=== PATIENT | female | born 2000 | race Caucasian/White ===

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

== ENCOUNTER 2023-07-10 20:04 | Inpatient (IN) ==
--- NOTE | 2023-07-10 20:15 | ED Triage Note ---
Date of Service July 10, 2023 Provider in Triage Author: Melisa Mcmahon History of Present Illness This patient was briefly evaluated while in triage. An abbreviated physical exam was performed. This patient is a 22-year-old Female who presents to the ED for evaluation of "I'm wheezing really bad. My back hurts. My head hurts. And I can't quit wheezing. It's really bad." States symptoms started 3 days ago. Having difficulty catching her breath. Denies any chest pain. Is having back pain. No history of allergies or asthma. States her chest was really red earlier today. Has been outside a lot. Physical Exam VITALS: Vitals are noted on the nurse's note and reviewed by myself. GENERAL: This is a 22 year old female, in no acute distress, nondiaphoretic, well-developed well-nourished. SKIN: No obvious rashes, edema, erythema HEAD: Normocephalic atraumatic. EYES: Conjunctivae without injection, sclerae without icterus. NECK: No JVD. LUNGS: Diffuse expiratory wheezing, decreased inspiratory breath sounds. +Retractions. MUSCULOSKELETAL: Normal gait. NEURO: Patient was alert and oriented to person place and time. No focal neurological deficits. Initial orders for labs and / or imaging were placed and patient was placed in the waiting area until a bed is available. Please see further documentation for the full ED course.
[2023-07-10] MEDS: methylPREDNISolone 125 MG/2 ML VIAL IV STA (20:25)
[2023-07-10] MEDS: ALBUT/IPRATROP 3MG/0.5MG NEB 3 ML VIAL INH STA (20:25)
[2023-07-10] MEDS: SODIUM CHLORIDE 0.9% 1,000 ML IV SCH (20:35)
[2023-07-10 20:59] LABS: Basophils # (auto) 0.07 K/uL (0.00-0.20); Basophils % (auto) 0.6 %; Eosinophils # (auto) 1.32 K/uL (0.00-0.50); Eosinophils % (auto) 10.9 %; Hematocrit (blood only) 37.6 % (37.0-47.0); Hemoglobin 13.3 g/dl (12.0-16.0); Immature Granulocytes # (auto) 0.03 K/uL (0.01-0.20); Immature Granulocytes % (auto) 0.2 %; Lymphocytes # (auto) 2.46 K/uL (1.20-3.40); Lymphocytes % (auto) 20.3 %; Mean Corpuscular Hemoglobin 28.7 pg (25.0-34.0); Mean Corpuscular Hgb Conc 35.4 g/dL (32.0-36.0); Mean Corpuscular Volume 81.2 fL (80.0-100.0); Mean Platelet Volume 11.1 fL (9.4-12.4); Monocytes # (auto) 0.76 K/uL (0.11-0.59); Monocytes % (auto) 6.3 %; Neutrophils # (auto) 7.46 K/uL (1.40-6.50); Neutrophils % (auto) 61.7 %; Platelet Count 319 K/uL (130-400); RDW Coefficient of Variation 12.2 % (11.5-14.5); RDW Standard Deviation 35.5 fL (36.4-46.3); Red Blood Count 4.63 M/uL (4.20-5.40)
--- NOTE | 2023-07-10 21:05 | Emergency Department Note ---
Impression & Plan Obstructive airway disease, Diffuse wheezing, Leukocytosis, Shortness of breath ED Provider Note HISTORY OF PRESENT ILLNESS: Patient is a 22-year-old female presenting with shortness of breath. Patient reports that she has been having significantly progressive shortness of breath over the last 3 days. Reports that she is also having right-sided chest pain. Reports that she feels like she cannot catch her breath. Denies any DVT or PE history. Denies any OCP use or recent surgeries. Denies any fevers. Reports that the right upper part of her chest hurts when she coughs. She states that she feels very winded both at rest and with any sort of exertion. She reports a cough it has been nonproductive. Denies any recent sick contact exposures. Denies any recent travel. ROS: as above PHYSICAL EXAM: Constitutional: Patient appears in no acute distress. HENT: Head: Normocephalic and atraumatic. Eyes: EOMI, PERRL Mouth/Throat: Mucous membranes moist. Neck: Trachea midline. Neck supple. Cardiovascular: Tachycardic with regular rhythm. No murmurs, rubs or gallops. Intact distal pulses. Pulmonary/Chest: No respiratory distress. Patient has significant audible wheezes without a stethoscope. She does have expiratory wheezes on assessment of her chest. She is tachypneic Abdominal: Abdomen soft, no tenderness, rebound or guarding. Musculoskeletal: No edema, tenderness or deformity noted. Skin: Warm and dry. No rash, erythema, pallor or cyanosis Psychiatric: Appropriate mood and affect for situation. Neurological: Alert and keenly responsive. CN II-XII grossly intact, moving all extremities equally and fully. MDM: - Vitals signs showed tachycardia and tachypnea. - History obtained via patient. History as above. - Chronic conditions affecting care: None - Differential diagnoses include, but are not limited to: Congestive heart failure; acute coronary syndrome; COPD/asthma exacerbation; pulmonary edema; pulmonary embolism; pneumonia; pneumothorax; viral syndrome - Order placed for continuous cardiac monitoring. At this time, monitor showed rate of 101 bpm with normal sinus rhythm, per my interpretation. - External medical records reviewed. - EKG interpreted by myself showed normal sinus rhythm. Rate 86 bpm. QT 348. No acute ischemic changes. Noted to have PVCs. - Laboratory workup interpreted by myself showed leukocytosis (WBC 12.10); stable electrolytes; normal troponin; normal magnesium; negative hCG - CXR negative for pneumonia, per my interpretation - CT PE negative for PE. - Patient was given duoneb treatment, 1L NS and 125 mg IV solumedrol on initial assessment. On my assessment, the patient is still significantly wheezy and tachypneic. She is given 1 g of IV magnesium. On reassessment, her tachypnea has improved but she is still very wheezy. She was given an hour-long DuoNeb treatment. On reassessment at 2342, the patient is still tachypneic and working hard to breathe. She is holding the DuoNeb treatments to her face and reports it does not feel like it is working. She does have significant expiratory wheezes still. I decided to order 0.3 mg of IM epinephrine to see if this can help with further treatment of her obstructive airway disease. Discussed results with the patient. She is agreeable to admission. - Discussion was had with pillowcase sewer about patient's case and need for admission - Hospitalist consulted for admission - [facility]. I have personally spent 46 minutes of critical care time in the direct management of this patient. This includes bedside care, interpretation of diagnostic studies, and testing, discussion with consultants, patient, and family members, and other required patient management activities. This 46 minutes is in excess of all separately billable procedures. ASSESSMENT AND PLAN: Diagnosis: obstructive airway disease; leukocytosis; diffuse wheezing; shortness of breath Plan: admit Past Med/Surg History Medical History No pertinent family history Rib pain on left side Left facial swelling Dental abscess Surgical History No pertinent past surgical history Family History Other No pertinent family history in first degree relatives Social History Smoking Status: Current every day smoker Tobacco Type: E-cigarettes / Vaping Hx Alcohol Use: No Hx Substance Use: No Preferred Language: Kinyarwanda marital status: Single Current Living Situation: Family current occupational status: student Feels Safe at Home: Yes Allergies Allergies Allergy/AdvReac Type Severity Reaction Status Date / Time No Known Allergies Allergy Verified 03/10/21 23:10 Home Meds Home Medications Medication Instructions Recorded Confirmed albuterol sulfate 90 mcg/actuation 1 puff inhalation Q6H PRN 10/25/18 03/10/21 aerosol inhaler (Ventolin HFA) Shortness Of Breath Or Wheezing escitalopram oxalate 10 mg tablet 10 mg PO DAILY 12/07/20 03/10/21 Previous Rx's Medication Instructions Recorded albuterol sulfate 90 mcg/actuation 2 inha inhalation Q6H PRN 06/17/23 aerosol inhaler shortness of breath or wheezing #1 inhaler benzonatate 200 mg capsule 200 mg PO TID PRN cough #30 caps 06/17/23 Results & Data (ED) Vital Signs Vital Signs - 24 hr 07/10/23 20:13 07/10/23 20:34 07/10/23 20:48 Temperature 36.9 C Temperature Source Temporal Artery Scan Pulse Rate 96 H 120 H Pulse Rate [Left Apical] 98 H Pulse Rate from SpO2 Sensor Respiratory Rate 22 33 H Respiratory Effort / Characteristics Labored Short of Breath Blood Pressure 126/76 Blood Pressure [Left Arm] 133/95 Blood Pressure Mean 92 Blood Pressure Mean [Left Arm] 107 Blood Pressure Position [Left Arm] Sitting Pulse Oximetry 96 91 Oxygen Delivery Method Room Air Room Air Sepsis Recent Fever Within 48 Hours No Sepsis New/Unexplained Change in Mental Status No Sepsis Action Taken by Nursing No Action Required 07/10/23 20:50 07/10/23 21:00 07/10/23 21:31 Temperature Temperature Source Pulse Rate 96 H 107 H Pulse Rate [Left Apical] Pulse Rate from SpO2 Sensor 95 H 89 Respiratory Rate 18 43 H Respiratory Effort / Characteristics Blood Pressure 122/64 103/84 Blood Pressure [Left Arm] Blood Pressure Mean 83 90 Blood Pressure Mean [Left Arm] Blood Pressure Position [Left Arm] Pulse Oximetry 93 97 93 Oxygen Delivery Method Room Air Sepsis Recent Fever Within 48 Hours Sepsis New/Unexplained Change in Mental Status Sepsis Action Taken by Nursing 07/10/23 22:30 07/10/23 22:41 07/10/23 22:42 Temperature Temperature Source Pulse Rate 84 Pulse Rate [Left Apical] Pulse Rate from SpO2 Sensor 85 103 H Respiratory Rate 19 Respiratory Effort / Characteristics Blood Pressure 132/90 132/90 Blood Pressure [Left Arm] Blood Pressure Mean 104 104 Blood Pressure Mean [Left Arm] Blood Pressure Position [Left Arm] Pulse Oximetry 95 92 95 Oxygen Delivery Method Room Air Room Air Sepsis Recent Fever Within 48 Hours Sepsis New/Unexplained Change in Mental Status Sepsis Action Taken by Nursing 07/10/23 23:00 07/10/23 23:16 07/10/23 23:54 Temperature Temperature Source Pulse Rate 105 H 134 H Pulse Rate [Left Apical] 80 Pulse Rate from SpO2 Sensor 101 H 138 H Respiratory Rate 23 16 20 Respiratory Effort / Characteristics Non-Labored Spontaneous Blood Pressure 99/56 L 137/87 Blood Pressure [Left Arm] Blood Pressure Mean 70 103 Blood Pressure Mean [Left Arm] Blood Pressure Position [Left Arm] Pulse Oximetry 92 95 94 Oxygen Delivery Method Room Air Sepsis Recent Fever Within 48 Hours Sepsis New/Unexplained Change in Mental Status Sepsis Action Taken by Nursing 07/11/23 00:00 Temperature Temperature Source Pulse Rate 86 Pulse Rate [Left Apical] Pulse Rate from SpO2 Sensor 80 Respiratory Rate 23 Respiratory Effort / Characteristics Blood Pressure 99/51 L Blood Pressure [Left Arm] Blood Pressure Mean 67 Blood Pressure Mean [Left Arm] Blood Pressure Position [Left Arm] Pulse Oximetry 92 Oxygen Delivery Method Room Air Sepsis Recent Fever Within 48 Hours Sepsis New/Unexplained Change in Mental Status Sepsis Action Taken by Nursing Laboratory Data 07/10/23 20:20 07/10/23 20:20 Lab Results 07/10/23 07/10/23 Range/Units 20:20 23:08 WBC 12.10 H (4.8-10.8) K/ul RBC 4.63 (4.20-5.40) M/uL Hgb 13.3 (12.0-16.0) g/dl Hct 37.6 (37.0-47.0) % MCV 81.2 (80.0-100.0) fL MCH 28.7 (25.0-34.0) pg MCHC 35.4 (32.0-36.0) g/dL RDW Std Deviation 35.5 L (36.4-46.3) fL RDW Coeff of [place] 12.2 (11.5-14.5) % Plt Count 319 (130-400) K/uL MPV 11.1 (9.4-12.4) fL Immature Gran % (Auto) 0.2 % Neut % (Auto) 61.7 % Lymph % (Auto) 20.3 % [place] % (Auto) 6.3 % Eos % (Auto) 10.9 % Baso % (Auto) 0.6 % Neut # (Auto) 7.46 H (1.40-6.50) K/uL Lymph # (Auto) 2.46 (1.20-3.40) K/uL [place] # (Auto) 0.76 H (0.11-0.59) K/uL Eos # (Auto) 1.32 H (0.00-0.50) K/uL Baso # (Auto) 0.07 (0.00-0.20) K/uL Immature Gran # (Auto) 0.03 (0.01-0.20) K/uL PT 11.3 (9.0-12.0) Seconds INR 1.0 (0.9-1.1) APTT 32 H (21-31) Seconds PTT Ratio 1.1 D-Dimer 230 (0-500) ug/L FEU Sodium 139 (136-145) mmol/L Potassium 3.5 (3.5-5.1) mmol/L Chloride 107 (98-107) mmol/L Carbon Dioxide 23 (21-32) mmol/L Anion Gap 9 (3-11) BUN 7 (6-23) mg/dl Creatinine 0.62 (0.6-1.2) mg/dl Est Cr Clr Drug Dosing 117.7 ml/min Est GFR ( Amer) 148.3 ml/min Est GFR (Non-Af Amer) 128.0 ml/min BUN/Creatinine Ratio 11.3 (10-20) Glucose 99 (70-99(Fasting)) mg/dl Calcium 9.6 (8.6-10.3) mg/dl Magnesium 1.9 (1.7-2.4) mg/dl Total Bilirubin 0.6 (0.2-1.0) mg/dl AST 16 (13-39) U/L ALT 10 (7-52) U/L Alkaline Phosphatase 86 (34-104) U/L Troponin I High Sens 2.3 (0-14) pg/ml Total Protein 7.8 (6.0-8.3) gm/dl Albumin 4.6 (3.4-5.0) gm/dl Globulin 3.2 (2.5-4.0) gm/dl Albumin/Globulin Ratio 1.4 (0.9-2) HCG, Qual Negative (Negative) Urine Color Yellow Urine Appearance Clear (Clear) Urine pH 6.0 (4.5-7.5) Ur Specific [place] > 1.045 H (1.000-1.030) Urine Protein Negative (Negative) Urine Glucose (UA) Negative (Negative) Urine Ketones Negative (Negative) Urine Blood Negative (Negative) Urine Nitrite Negative (Negative) Urine Bilirubin Negative (Negative) Urine Urobilinogen Negative (Negative) Ur Leukocyte Esterase Negative (Negative) Adenovirus (PCR) Not Detected (NotDetected) B. pertussis DNA (PCR) Not Detected (NotDetected) B.parapertussis DNA PCR Not Detected (NotDetected) C. pneumoniae DNA (PCR) Not Detected (NotDetected) Coronavirus OC43 (PCR) Not Detected (NotDetected) Coronavirus HKU1 (PCR) Not Detected (NotDetected) Coronavirus 229E (PCR) Not Detected (NotDetected) SARS-CoV-2 (PCR) Not Detected (NotDetected) Coronavirus NL63 (PCR) Not Detected (NotDetected) Human Metapneumovir PCR Not Detected (NotDetected) Influenza Type A (PCR) Not Detected (NotDetected) Influenza Type B (PCR) Not Detected (NotDetected) M. pneumoniae (PCR) Not Detected (NotDetected) Parainfluenza 1 (PCR) Not Detected (NotDetected) Parainfluenza 2 (PCR) Not Detected (NotDetected) Parainfluenza 3 (PCR) Not Detected (NotDetected) Parainfluenza 4 (PCR) Not Detected (NotDetected) RSV (PCR) Not Detected (NotDetected) Entero/Rhino (PCR) Not Detected (NotDetected) Administered Medications Discontinued Medications Albuterol (Albut/Ipratrop 3mg/0.5mg Neb 3 Ml Vial) 3 ml INH NOW STA Stop: 07/10/23 20:16 Last Admin: 07/10/23 20:25 Dose: 3 ml Documented By: [facility] Albuterol (Albut/Ipratrop 3mg/0.5mg Neb 3 Ml Vial) 12 ml NEB ONE ONE; Protocol Stop: 07/10/23 22:56 Last Admin: 07/10/23 23:16 Dose: 12 ml Documented By: BEN Epinephrine HCl (Epinephrine Inj 1 Mg/Ml Amp) 0.3 mg IM NOW STA Stop: 07/10/23 23:42 Last Admin: 07/10/23 23:53 Dose: 0.3 mg Documented By: DANIELA Sodium Chloride (Nss) 1,000 mls @ 999 mls/hr IV .Q1H1M VISHNU Stop: 07/10/23 21:15 Last Infusion: 07/10/23 21:36 Dose: Infused Documented By: Admin: 07/10/23 20:35 Dose: 999 mls/hr Documented By: NIYA Magnesium Sulfate/Dextrose (Magnesium Sulfate / D5w) 1 gm in 100 mls @ 100 mls/hr IV NOW STA Stop: 07/10/23 21:59 Last Infusion: 07/10/23 22:08 Dose: Infused Documented By: Admin: 07/10/23 21:08 Dose: 100 mls/hr [place]ed [place] [facility] [place] (Optiray 320 125ml) 87 ml IV ONCE ONE Stop: 07/10/23 22:03 Last Admin: 07/10/23 22:02 Dose: 87 ml Documented By: NICOLASA Methylprednisolone (Methylprednisolone 125 Mg/2 Ml Vial) 125 mg IV NOW STA Stop: 07/10/23 20:16 Last Admin: 07/10/23 20:25 Dose: 125 mg Documented By: HERNANDEZ Imaging Data Radiologist's Impression: Chest CTA 07/10/23 21:08 Exam(s): CTA CHEST IV Amt: 87 ml opti 320 EXAM: CT Angiography Chest With Intravenous Contrast CLINICAL HISTORY: Reason for exam: PE. TECHNIQUE: Axial computed tomographic angiography images of the chest with intravenous contrast. Automated exposure control was utilized for the study. A dose lowering technique was utilized adhering to the principles of ALARA. MIP reconstructed images were created and reviewed. COMPARISON: No relevant prior studies available. FINDINGS: LUNGS: No focal consolidation, pleural effusion, or pneumothorax. HEART: Within normal limits. VASCULATURE: No acute pulmonary embolism. THYROID: Within normal limits. MEDIASTINUM + LYMPH NODES: There are no pathologically enlarged mediastinal, hilar, or axillary lymph nodes. SUPERIOR ABDOMEN: The included portions of the superior abdomen are within normal limits. MUSCULOSKELETAL: Within normal limits. IMPRESSION: No acute pulmonary embolism. Electronically signed by: Wali Whitehead MD 07/10/23 23:05 PM Discharge Plan Visit Data Chief Complaint: Shortness of Breath/Dyspnea Stated Complaint: SOB ED Provider: Melisa Mcmahon Discharge Problem: Obstructive airway disease, Diffuse wheezing, Leukocytosis, Shortness of breath Forms Stand Alone Forms: [employer] Prescriptions Prescriptions: No Action albuterol sulfate [Ventolin HFA] 90 mcg/actuation HFA aerosol inhaler 1 puff inhalation Q6H PRN (Reason: Shortness Of Breath Or Wheezing) escitalopram oxalate 10 mg tablet 10 mg PO DAILY benzonatate 200 mg capsule 200 mg PO TID PRN (Reason: cough) Qty: 30 0RF albuterol sulfate 90 mcg/actuation HFA aerosol inhaler 2 inha INH Q6H PRN (Reason: shortness of breath or wheezing) Qty: 1 0RF Referrals Referrals: PCP,NO [Physician] -
[2023-07-10 21:06] LABS: Albumin Globulin Ratio 1.4 (0.9-2); Albumin Level 4.6 gm/dl (3.4-5.0); BUN Creatinine Ratio 11.3 (10-20); Bilirubin,Total 0.6 mg/dl (0.2-1.0); Calcium 9.6 mg/dl (8.6-10.3); Creatinine Clr Calc Pharmacy 117.7 ml/min; Est GFR (African American) 148.3 ml/min; Globulin 3.2 gm/dl (2.5-4.0); Magnesium 1.9 mg/dl (1.7-2.4); Potassium 3.5 mmol/L (3.5-5.1); Pregnancy Test, Serum Negative (Negative); Total Protein 7.8 gm/dl (6.0-8.3)
[2023-07-10] MEDS: MAGNESIUM SULFATE / D5W 1 GM/100 ML BAG IV STA (21:08)
[2023-07-10 21:13] LABS: Troponin I High Sensitivity 2.3 pg/ml (0-14)
[2023-07-10 21:34] LABS: Adenovirus PCR Not Detected (NotDetected); Bordetella parapertussis PCR Not Detected (NotDetected); Bordetella pertussis PCR Not Detected (NotDetected); Chlamydia pneumoniae PCR Not Detected (NotDetected); Coronavirus 229E PCR Not Detected (NotDetected); Coronavirus CoV-2 (COVID19)PCR Not Detected (NotDetected); Coronavirus HKU1 PCR Not Detected (NotDetected); Coronavirus NL63 PCR Not Detected (NotDetected); Coronavirus OC43PCR Not Detected (NotDetected); Human Metapneumovirus PCR Not Detected (NotDetected); Influenza A PCR Not Detected (NotDetected); Influenza B PCR Not Detected (NotDetected); Mycoplasma pneumoniae PCR Not Detected (NotDetected); Parainfluenza Virus 1 PCR Not Detected (NotDetected); Parainfluenza Virus 2 PCR Not Detected (NotDetected); Parainfluenza Virus 3 PCR Not Detected (NotDetected); Parainfluenza Virus 4 PCR Not Detected (NotDetected); Respiratory Syncytial VirusPCR Not Detected (NotDetected); Rhinovirus/Enterovirus PCR Not Detected (NotDetected)
[2023-07-10 21:47] LABS: D Dimer 230 ug/L FEU (0-500); Partial Thromboplastin Ratio 1.1; Partial Thromboplastin Time 32 Seconds (21-31); Prothrombin Time 11.3 Seconds (9.0-12.0)
[2023-07-10] MEDS: OPTIRAY 320 125ml IV ONE (22:02)
--- NOTE | 2023-07-10 23:05 | CT Scan Report ---
Exam(s): CTA CHEST IV Amt: 87 ml opti 320 EXAM: CT Angiography Chest With Intravenous Contrast CLINICAL HISTORY: Reason for exam: PE. TECHNIQUE: Axial computed tomographic angiography images of the chest with intravenous contrast. Automated exposure control was utilized for the study. A dose lowering technique was utilized adhering to the principles of ALARA. MIP reconstructed images were created and reviewed. COMPARISON: No relevant prior studies available. FINDINGS: LUNGS: No focal consolidation, pleural effusion, or pneumothorax. HEART: Within normal limits. VASCULATURE: No acute pulmonary embolism. THYROID: Within normal limits. MEDIASTINUM + LYMPH NODES: There are no pathologically enlarged mediastinal, hilar, or axillary lymph nodes. SUPERIOR ABDOMEN: The included portions of the superior abdomen are within normal limits. MUSCULOSKELETAL: Within normal limits. IMPRESSION: No acute pulmonary embolism. Electronically signed by: Wali Whitehead MD 07/10/23 23:05 PM
[2023-07-10] MEDS: ALBUT/IPRATROP 3MG/0.5MG NEB 3 ML VIAL NEB ONE (23:16)
[2023-07-10 23:38] LABS: Appearance Urine Clear (Clear); Bilirubin Urine Negative (Negative); Blood Urine Negative (Negative); Color Urine Yellow; Glucose Urine UA Negative (Negative); Ketones Urine Negative (Negative); Leukocyte Esterase Urine Negative (Negative); Nitrite Urine Negative (Negative); Protein Urine Negative (Negative); Specific Gravity Urine > 1.045 (1.000-1.030); Urobilinogen Urine Negative (Negative)
[2023-07-10] MEDS: EPINEPHrine INJ 1 MG/ML AMP IM STA (23:53)
--- NOTE | 2023-07-11 01:47 | History & Physical Report ---
Date of Service July 11, 2023 Assessment & Plan (1) Shortness of breath: Plan: 22-year-old female with past med history significant for depression and anxiety presents with shortness of breath and cough going on for last 3 days. States it is getting progressively worse. Having dry cough. Chest is hurting and back is hurting because of cough. Denies any fevers. No headache. No runny nose or sore throat. No nausea. No abdominal pain. Normal bowel and bladder movements. Patient seems to be very short of breath and not improved with a 1 hour-long nebs and magnesium and she was given dose of epinephrine in the ER. Currently sitting on the bed comfortably, slightly shaky. But able to talk in full sentences. Patient states she used nebs many many years ago. And recently she was using inhaler but was not helping. Patient states she has no diagnosis of asthma. Shortness of breath Possibly asthma exacerbation. Mild bilateral wheezing on exam Continue with IV Solu-Medrol 40 mg 3 times daily, nebs [id number] and as needed and p.o. doxycycline Consult pulmonary in a.m. for further recommendations Depression and anxiety Continue home medications Chest pain from coughing will f/u serial ce. DVT prophylaxis Lovenox Disposition Telemetry Full code. History of Present Illness Chief Complaint: Shortness of breath Primary Care Provider: John Marion Jr 22-year-old female with past med history significant for depression and anxiety presents with shortness of breath and cough going on for last 3 days. States it is getting progressively worse. Having dry cough. Chest is hurting and back is hurting because of cough. Denies any fevers. No headache. No runny nose or sore throat. No nausea. No abdominal pain. Normal bowel and bladder movements. Patient seems to be very short of breath and not improved with a 1 hour-long nebs and magnesium and she was given dose of epinephrine in the ER. Currently sitting on the bed comfortably, slightly shaky. But able to talk in full sentences. Patient states she used nebs many many years ago. And recently she was using inhaler but was not helping. Patient states she has no diagnosis of asthma. Past medical history. As mentioned above Past surgical history none as per patient Social history. Denies vaping daily. Alcohol occasional. Family history. Father had diabetes and neuropathy. States mother does not go to doctors. Allergies Allergy/AdvReac Type Severity Reaction Status Date / Time No Known Allergies Allergy Verified 07/11/23 01:45 Home Medications Medication Instructions Recorded Confirmed Type albuterol sulfate 90 mcg/actuation 1 puff inhalation Q6H PRN 10/25/18 07/11/23 History aerosol inhaler (Ventolin HFA) Shortness Of Breath Or Wheezing albuterol sulfate 90 mcg/actuation 2 inha inhalation Q6H PRN 06/17/23 07/11/23 Rx aerosol inhaler shortness of breath or wheezing #1 inhaler buspirone 5 mg tablet 5 mg PO BID 07/11/23 07/11/23 History doxepin 50 mg capsule 50 mg PO HS 07/11/23 07/11/23 History guaifenesin 100 mg/5 mL oral liquid 0 mg PO Q4H PRN Cough 07/11/23 07/11/23 History Past Med/Surg History Medical History No pertinent family history Rib pain on left side Left facial swelling Dental abscess Surgical History No pertinent past surgical history Family History Other No pertinent family history in first degree relatives Social History Smoking Status: Current every day smoker Tobacco Type: E-cigarettes / Vaping Hx Alcohol Use: No Hx Substance Use: No Preferred Language: [place] marital status: Single Current Living Situation: Family current occupational status: student Feels Safe at Home: Yes Review of Systems Review of Systems: All systems reviewed & are unremarkable except as noted in HPI & below Physical Exam Physical Exam: General- Not in acute distress Head- atraumatic Eyes- PERRL. ENT- oropharynx clear Neck- supple, no JVD. Lungs- clear to auscultation mild b/l wheezing, no crackles. Heart- regular rhythm; no murmur, no gallop. Abdomen- normal bowel sounds, soft, nontender, no distension. Extremities- no pretibial edema, no erythema seen Neuro- alert, oriented PERRL no facial palsy; no dysarthria; moves extremities. Results & Data Results & Data Vital Signs (Past 12 Hours) Vital Signs Temp Pulse Pulse Resp BP BP Pulse Ox 07/11/23 00:00 86 23 99/51 L 92 07/10/23 23:54 134 H 20 137/87 94 07/10/23 23:16 80 16 95 07/10/23 23:00 105 H 23 99/56 L 92 07/10/23 22:42 95 07/10/23 22:41 132/90 92 07/10/23 22:30 84 19 132/90 95 07/10/23 21:31 107 H 43 H 103/84 93 07/10/23 21:00 96 H 18 122/64 97 07/10/23 20:50 93 07/10/23 20:48 120 H 07/10/23 20:34 98 H 33 H 133/95 91 07/10/23 20:13 36.9 C 96 H 22 126/76 96 O2 Del Method 07/11/23 00:00 Room Air 07/10/23 23:54 07/10/23 23:16 Room Air 07/10/23 23:00 07/10/23 22:42 Room Air 07/10/23 22:41 07/10/23 22:30 Room Air 07/10/23 21:31 07/10/23 21:00 07/10/23 20:50 Room Air 07/10/23 20:48 07/10/23 20:34 Room Air 07/10/23 20:13 Room Air Diagnostic Findings Laboratory Results WBC 12.10 K/ul (4.8-10.8) H 07/10/23 20:20 RBC 4.63 M/uL (4.20-5.40) 07/10/23 20:20 Hgb 13.3 g/dl (12.0-16.0) 07/10/23 20:20 Hct 37.6 % (37.0-47.0) 07/10/23 20:20 MCV 81.2 fL (80.0-100.0) 07/10/23 20:20 MCH 28.7 pg (25.0-34.0) 07/10/23 20:20 MCHC 35.4 g/dL (32.0-36.0) 07/10/23 20:20 RDW Std Deviation 35.5 fL (36.4-46.3) L 07/10/23 20:20 RDW Coeff of Dedra 12.2 % (11.5-14.5) 07/10/23 20:20 Plt Count 319 K/uL (130-400) 07/10/23 20:20 MPV 11.1 fL (9.4-12.4) 07/10/23 20:20 Immature Gran % (Auto) 0.2 % 07/10/23 20:20 Neut % (Auto) 61.7 % 07/10/23 20:20 Lymph % (Auto) 20.3 % 07/10/23 20:20 [place] % (Auto) 6.3 % 07/10/23 20:20 Eos % (Auto) 10.9 % 07/10/23 20:20 Baso % (Auto) 0.6 % 07/10/23 20:20 Neut # (Auto) 7.46 K/uL (1.40-6.50) H 07/10/23 20:20 Lymph # (Auto) 2.46 K/uL (1.20-3.40) 07/10/23 20:20 [place] # (Auto) 0.76 K/uL (0.11-0.59) H 07/10/23 20:20 Eos # (Auto) 1.32 K/uL (0.00-0.50) H 07/10/23 20:20 Baso # (Auto) 0.07 K/uL (0.00-0.20) 07/10/23 20:20 Immature Gran # (Auto) 0.03 K/uL (0.01-0.20) 07/10/23 20:20 PT 11.3 Seconds (9.0-12.0) 07/10/23 20:20 INR 1.0 (0.9-1.1) 07/10/23 20:20 APTT 32 Seconds (21-31) H 07/10/23 20:20 PTT Ratio 1.1 07/10/23 20:20 D-Dimer 230 ug/L FEU (0-500) 07/10/23 20:20 Sodium 139 mmol/L (136-145) 07/10/23 20:20 Potassium 3.5 mmol/L (3.5-5.1) 07/10/23 20:20 Chloride 107 mmol/L (98-107) 07/10/23 20:20 Carbon Dioxide 23 mmol/L (21-32) 07/10/23 20:20 Anion Gap 9 (3-11) 07/10/23 20:20 BUN 7 mg/dl (6-23) 07/10/23 20:20 Creatinine 0.62 mg/dl (0.6-1.2) 07/10/23 20:20 Est Cr Clr Drug Dosing 117.7 ml/min 07/10/23 20:20 Est GFR ( Amer) 148.3 ml/min 07/10/23 20:20 Est GFR (Non-Af Amer) 128.0 ml/min 07/10/23 20:20 BUN/Creatinine Ratio 11.3 (10-20) 07/10/23 20:20 Glucose 99 mg/dl (70-99(Fasting)) 07/10/23 20:20 Calcium 9.6 mg/dl (8.6-10.3) 07/10/23 20:20 Magnesium 1.9 mg/dl (1.7-2.4) 07/10/23 20:20 Total Bilirubin 0.6 mg/dl (0.2-1.0) 07/10/23 20:20 AST 16 U/L (13-39) 07/10/23 20:20 ALT 10 U/L (7-52) 07/10/23 20:20 Alkaline Phosphatase 86 U/L (34-104) 07/10/23 20:20 Troponin I High Sens 2.3 pg/ml (0-14) 07/10/23 20:20 Total Protein 7.8 gm/dl (6.0-8.3) 07/10/23 20:20 Albumin 4.6 gm/dl (3.4-5.0) 07/10/23 20:20 Globulin 3.2 gm/dl (2.5-4.0) 07/10/23 20:20 Albumin/Globulin Ratio 1.4 (0.9-2) 07/10/23 20:20 HCG, Qual Negative (Negative) 07/10/23 20:20 Urine Color Yellow 07/10/23 23:08 Urine Appearance Clear (Clear) 07/10/23 23:08 Urine pH 6.0 (4.5-7.5) 07/10/23 23:08 Ur Specific [place] > 1.045 (1.000-1.030) H 07/10/23 23:08 Urine Protein Negative (Negative) 07/10/23 23:08 Urine Glucose (UA) Negative (Negative) 07/10/23 23:08 Urine Ketones Negative (Negative) 07/10/23 23:08 Urine Blood Negative (Negative) 07/10/23 23:08 Urine Nitrite Negative (Negative) 07/10/23 23:08 Urine Bilirubin Negative (Negative) 07/10/23 23:08 Urine Urobilinogen Negative (Negative) 07/10/23 23:08 Ur Leukocyte Esterase Negative (Negative) 07/10/23 23:08 Adenovirus (PCR) Not Detected (NotDetected) 07/10/23 20:20 B. pertussis DNA (PCR) Not Detected (NotDetected) 07/10/23 20:20 B.parapertussis DNA PCR Not Detected (NotDetected) 07/10/23 20:20 C. pneumoniae DNA (PCR) Not Detected (NotDetected) 07/10/23 20:20 Coronavirus OC43 (PCR) Not Detected (NotDetected) 07/10/23 20:20 Coronavirus HKU1 (PCR) Not Detected (NotDetected) 07/10/23 20:20 Coronavirus 229E (PCR) Not Detected (NotDetected) 07/10/23 20:20 SARS-CoV-2 (PCR) Not Detected (NotDetected) 07/10/23 20:20 Coronavirus NL63 (PCR) Not Detected (NotDetected) 07/10/23 20:20 Human Metapneumovir PCR Not Detected (NotDetected) 07/10/23 20:20 Influenza Type A (PCR) Not Detected (NotDetected) 07/10/23 20:20 Influenza Type B (PCR) Not Detected (NotDetected) 07/10/23 20:20 M. pneumoniae (PCR) Not Detected (NotDetected) 07/10/23 20:20 Parainfluenza 1 (PCR) Not Detected (NotDetected) 07/10/23 20:20 Parainfluenza 2 (PCR) Not Detected (NotDetected) 07/10/23 20:20 Parainfluenza 3 (PCR) Not Detected (NotDetected) 07/10/23 20:20 Parainfluenza 4 (PCR) Not Detected (NotDetected) 07/10/23 20:20 RSV (PCR) Not Detected (NotDetected) 07/10/23 20:20 Entero/Rhino (PCR) Not Detected (NotDetected) 07/10/23 20:20 Impressions Chest CTA 07/10/23 21:08 Exam(s): CTA CHEST IV Amt: 87 ml opti 320 EXAM: CT Angiography Chest With Intravenous Contrast CLINICAL HISTORY: Reason for exam: PE. TECHNIQUE: Axial computed tomographic angiography images of the chest with intravenous contrast. Automated exposure control was utilized for the study. A dose lowering technique was utilized adhering to the principles of ALARA. MIP reconstructed images were created and reviewed. COMPARISON: No relevant prior studies available. FINDINGS: LUNGS: No focal consolidation, pleural effusion, or pneumothorax. HEART: Within normal limits. VASCULATURE: No acute pulmonary embolism. THYROID: Within normal limits. MEDIASTINUM + LYMPH NODES: There are no pathologically enlarged mediastinal, hilar, or axillary lymph nodes. SUPERIOR ABDOMEN: The included portions of the superior abdomen are within normal limits. MUSCULOSKELETAL: Within normal limits. IMPRESSION: No acute pulmonary embolism. Electronically signed by: Wali Whitehead MD 07/10/23 23:05 PM ECG Additional Comments: ECG. Sinus rhythm with sinus arrhythmia with occasional PVCs at a rate of 86. Incomplete right bundle branch block. Nonspecific T wave abnormalities. Code Status & VTE Plan VTE Prophylaxis Plan VTE Prophylaxis will be ordered: Yes
[2023-07-11] MEDS ORDERED: POLYETHYLENE (MIRALAX) 17 GM PACK PO PRN (02:55)
[2023-07-11] MEDS ORDERED: LEVALBUTEROL 1.25 MG/3 ML NEB NEB PRN (02:55)
[2023-07-11] MEDS ORDERED: NITROGLYCERIN SL 0.4 MG/TAB TAB SL PRN (02:55)
[2023-07-11] MEDS ORDERED: guaiFENesin/CODEINE 100MG/10MG 5ML UDC PO PRN (02:55)
--- OUTSIDE RECORDS SUMMARY | 2023-07-11 03:14 | External Medical Summary | Summary of Care ---
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 Name Role Phone Vahe Negrete MD Primary Care Provide r Reason for Visit * Reason Onset Date Comments Medication Refill 07/10/2023 Encounter Details Date Type Department Care Team (Late st Contact Info) Description 07/10/2023 Refill Family [address] [place] [address] Vahe Negrete MD [address] [place] [address] [place] [id number] Allergies No known active allergiesdocumented as of this encounter (statuses as of 07/10/2023) Medications Medication Sig Dispensed Refills Start Date End Date Status traZODone HCl 50 MG Oral Tablet (Desyrel) TAKE 1 TAB AT BEDTIME FOR SLEEP NEEDED 0 04/26/2022 Active FLUoxetine HCl 20 MG Oral Capsule (PROzac) Take 1 Capsule by mouth in the morning. 0 04/26/2022 Active Ondansetron 4 MG Oral Tablet Disintegrating (Zofran)Indications: Nausea and vomiting, unspecified vomiting type Place 1 Tablet on tongue every 12 hours as needed for Nausea or Vomiting. dissolve on tongue. 10 Tablet 0 12/19/2022 Active Ventolin HFA 108 (90 Base) MCG/ACT Inhalation Aerosol Solution Inhale 2 Puffs by mouth every 4 hours as needed for Wheezing. 18 g 0 07/10/2023 Active Ventolin HFA 108 (90 Base) MCG/ACT Inhalation Aerosol Solution Inhale 2 Puffs by mouth every 4 hours as needed for Wheezing. 18 g 2 07/25/2022 Discontinue d(Refill) documented as of this encounter (statuses as of 07/10/2023) Active Problems Problem Noted Date Diagnosed Date Major depressive disorder wi th single episode, in partial remission 05/09/2022 Anxiety 05/09/2022 Insomnia 05/09/2022 documented as of this encounter (statuses as of 07/10/2023) Immunizations Name Administration Dates Next Due DTaP Dipth/Tet/Acell Pertussis (Infanrix), Peds 01/09/2006,03/17/2003,01/22/2001,12/11,2000 HPV Vaccine, 4-Valent 10/31/2014,11/26/2012,06/2011 Haemophilius B (HIB), unspecified 2001,01/22/2001,2000,10/02 Hepatitis A Vaccine 05/26/2010,07/14/2006 Hepatitis B, 0-19 yrs 01/22/2001,2000,04/2000 IPV - Polio Virus Vaccine (Inact) 2005,08/15/2002,2000,10/02 MMR - Measles/Mumps/Rubella Vaccine 01/09/2006,0 07/26/2001 Meningococcal B, 2/3-Dose Se js (TRUMENBA) 11/08/2017,09/08/2016 Meningococcal Conjugate Vaccine 11/25/2011 Meningococcal MCV4P Conjugat e Vaccine (Menactra) 09/08/2016 PPD 05/11/2022,05/02/2022,03/14/2022 Pneumococcal Vaccine, Unspec ified Formulation 01/22/2001,2000,2000 TDAP (age 11 and older)(Adacel) 08/26/2021,11/24 Varicella Vaccine (Chicken Pox) 08/25/2006,07/26 documented as of this encounter Social History Tobacco Use Types Packs/Day Years Used Date Smoking Tobacco: Never Smokeless Tobacco: Never Alcohol Use Standard Drinks/Week Comments Not Currently 0 (1 standard drink = 0.6 oz pur e alcohol) Sex and Gender Information Value Date Recorded Sex Assigned at Not on file Gender Identity Not on file Sexual Orientation Not on file Job Start Date Occupation Industry Not on file Not on file Not on file documented as of this encounter Miscellaneous Notes * Telephone Encounter - Juan Brown [facility] - 07/10/2023 4:56 PM EDT Signed Prescriptions: Disp Refills Ventolin HFA 108 (90 Base) MCG/ACT Inhalat*18 g 0 Sig: Inhale 2 Puffs by mouth every 4 hours as needed for Wheezing.Authorizing Provider: Rafael NEGRETE User: JUAN BROWN * Telephone Encounter - Juan Brown [facility] - 07/10/2023 4:55 PM EDT RX authorized. Zero refills given until upcoming OV. Thank you, Juan Brown, PharmD Clinical Pharmacist [facility] ([facility] (formerly Telepharmacy) 07/10/23 4:55 PM [phone] * Telephone Encounter - Elmira Michel CPhT - 07/10/2023 4:11 PM EDT Pt requesting HIGH PRIORITY due to out of med . Transfer Pt to scheduling to schedule appt. Did you pend patient's preferred pharmacy and medication before forwarding?yes Pharmacy: [id number] Pending Prescriptions: Disp Refills Ventolin HFA 108 (90 Base) MCG/ACT Inhala*18 g 2 Sig: Inhale 2 Puffs by mouth every 4 hours as needed for Wheezing. Last Visit: 05/09/2022 (in office), Visit date not found (telemedicine) Next Visit: Visit date not found If no future appointments scheduled, and last appointment is greater than a year ago, please schedule patient for a follow-up appointment Last date the medication was ordered: 07/25/22 Is this request for a controlled substance?No Urine Drug Screen:No results found for this or any previous visit. Patient Phone Numbers Labs: No results found for: "CREAT", "POTASSIUM", "TSH", "LDLCALC", "LDLDIRECT", "LDLCHOL", "ALT", "HGBA1C" documented in this encounter Plan of Treatment Upcoming Encounters Date Type Department Care Team (Late st Contact Info) Description 08/07/2023 9:20 AM EDT Telemedicine [address] [phone] Anu Frost MD [address] [place] [address] [place] [phone] Health Maintenance Due Date Last Done Comments Depression Screening 2012 HIV Screening 07/22/2015 Hepatitis C Screening 2018 Pap Smear 2021 COVID-19 Vaccine ( season) 2022 Influenza Vaccine (FLU shot) (#1) 2022 Gonorrhea / Chlamydia Screen 12/20/2023 12/19/2022 DTaP,Tdap,and Td Vaccines (8 - Td or Tdap) 08/27/2031 08/26/2021, 11/25/2011, 01/09/2006, Additional history exists Hepatitis B Completed 01/22/2001, 07/25, 2000 GARDASIL-HPV IMMUNIZATION SERIES Completed 10/31/2014, 11/26/2012, 11/25/2011 MENINGOCOCCAL (MENACTRA/MENVEO) Completed 09/08/2016, 11/25/2011 Pneumococcal Vaccine: Pediatrics (0 to 5 Years) and At-Risk Patients (6 to 64 Years) Aged Out No longer eligible based on patient's age to complete this topic documented as of this encounter Medical Devices Not on filedocumented as of this encounter Care Teams Side Stitching Machine Operator Relationship Specialty Start Date End Date Vahe Negrete MD [address] [place] [address] [place] [phone] PCP - General Family Medicine 05/02/22 documented as of this encounter
[2023-07-11] MEDS: ENOXAPARIN INJ 40 MG/0.4 ML SYR SQ SCH (05:31)
--- NOTE | 2023-07-11 07:01 | XRay Report ---
XR chest 1V portable CLINICAL HISTORY: Dyspnea TECHNIQUE: Single frontal radiograph of the chest was obtained. Comparison: Comparison is made to chest radiograph 06/17/2023 FINDINGS: No lines and tubes are seen. The cardiomediastinal silhouette is normal. The lungs are clear. No evid ence of pleural effusion or pneumothorax. IMPRESSION: No acute abnormalities and in particular no radiographic evidence of pneumonia. ACT 112: Negative or not required by law. Electronically signed by: Pablo Wilson M.D. 07/11/2023 6:59 AM
[2023-07-11] MEDS: LEVALBUTEROL 1.25 MG/3 ML NEB NEB SCH ×2 (07:14→19:55)
[2023-07-11] MEDS: IPRATROPIUM BROMIDE NEB SOLN 0.02% 0.5MG/2.5ML VIAL INH SCH (07:14)
[2023-07-11 07:45] LABS: Basophils # (auto) 0.01 K/uL (0.00-0.20); Basophils % (auto) 0.1 %; Eosinophils # (auto) 0.01 K/uL (0.00-0.50); Eosinophils % (auto) 0.1 %; Hematocrit (blood only) 34.5 % (37.0-47.0); Hemoglobin 11.9 g/dl (12.0-16.0); Immature Granulocytes # (auto) 0.04 K/uL (0.01-0.20); Immature Granulocytes % (auto) 0.5 %; Lymphocytes # (auto) 0.67 K/uL (1.20-3.40); Lymphocytes % (auto) 8.7 %; Mean Corpuscular Hemoglobin 28.3 pg (25.0-34.0); Mean Corpuscular Hgb Conc 34.5 g/dL (32.0-36.0); Mean Corpuscular Volume 82.1 fL (80.0-100.0); Mean Platelet Volume 11.2 fL (9.4-12.4); Monocytes # (auto) 0.11 K/uL (0.11-0.59); Monocytes % (auto) 1.4 %; Neutrophils # (auto) 6.88 K/uL (1.40-6.50); Neutrophils % (auto) 89.2 %; Platelet Count 263 K/uL (130-400); RDW Coefficient of Variation 12.4 % (11.5-14.5); RDW Standard Deviation 36.8 fL (36.4-46.3); White Blood Count 7.72 K/ul (4.8-10.8)
[2023-07-11 08:12] LABS: Anion Gap 9 (3-11); BUN Creatinine Ratio 12.2 (10-20); Blood Urea Nitrogen 6 mg/dl (6-23); Calcium 8.9 mg/dl (8.6-10.3); Carbon Dioxide 20 mmol/L (21-32); Chloride 108 mmol/L (98-107); Est GFR (African American) > 150.0 ml/min; Est GFR (Non-African American) 138.3 ml/min; Glucose 149 mg/dl (70-99(Fasting)); Potassium 4.2 mmol/L (3.5-5.1); Sodium 137 mmol/L (136-145)
--- NOTE | 2023-07-11 08:15 | Pulmonary Consultation ---
Date of Consultation July 11, 2023 Assessment & Plan (1) Asthma: (2) E-cigarette or vaping product use associated lung injury (EVALI): Plan Impression: 22-year-old female with extensive history of vaping and marijuana use admitted with shortness of breath and wheezing. She was positive for influenza B last month but her BioFire this time around is negative. She did have some patchy airspace opacities on her CT scan and on presentation had 10% peripheral eosinophilia. Differential would include asthma exacerbation, atypical pneumonia, versus EVALI. Recommendations: 1. Probable asthma: Given her elevated eosinophil count, would recommend continued treatment with Solu-Medrol at this point in time. Once the patient's wheezing is resolved she can transition to prednisone 20 mg twice a day for 5 days at which point in time it can be discontinued. Recommend outpatient PFTs and assessment of exhaled nitric oxide. Will add inhaled corticosteroid and long-acting beta agonist as well as LAMA to her regimen now. 2. Possible EVALI: Treatment is supportive care. Steroids are of unclear benefit in this disorder. There is no diagnostic study to confirm this. The patient was advised that she needs to stop vaping immediately. She should also avoid smoking marijuana and if she insists on using THC, pursuing an alternative route of administration other than inhalational is recommended. Consideration for repeat CT scan if the patient is successful in discontinuation of vaping in 2 to 3 months would be reasonable as well 3. Cough: Secondary to #1: Continue supportive care. Anticipate that as the patient's bronchospasm is improved, the cough should improve. 4. The patient does have some patchy airspace opacities and a leukocytosis on presentation. Will place her on azithromycin at this point in time. Anticipate 5-day course. Patient can be dismissed from the hospital when she feels like she is clinically improved. Will defer this to the primary admitting service although she is asking about going home today. If she is able to walk and able to tolerate oral medications, transition to home may be appropriate. She should follow-up with her primary care provider within the next week and consider outpatient pulmonary follow-up in the next 2 to 3 months. Thanks for the opportunity participating in the care of this patient. Will follow with her during this inpatient hospitalization. History of Present Illness Attending Physician: Sada Rasheed MD History of Present Illness By hospitalist to assist in evaluation management this patient admitted with shortness of breath and wheezing. History is obtained from review the electronic medical record as well as discussion with the patient. The patient is a 22-year-old female with a questionable prior history of asthma. She was given nebulizers as a child but apparently weaned off of them in the past. We have no documentation of her prior pulmonary evaluation. She does not use inhalers currently. She does vape on a regular basis. She uses [id number] nicotine. She also smokes marijuana on a regular basis. She presented to the emergency room yesterday with a 3-day history of progressive shortness of breath and nonproductive cough. She has not had any ill contacts at home. Her cough has been so severe it is causing chest discomfort. She has not experienced any fevers, chills, or night sweats. She has felt quite short of breath. In the emergency room she was evaluated and treated with an extensive nebulized treatment of bronchodilators as well as magnesium and epinephrine. She is improved now but continues to feel some tightness in her chest and continues to have a nonproductive cough. Imaging studies were unrevealing. The patient does not report any significant family history of lung disease that she is aware of although she is somewhat estranged from her family and history is not reliable. 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 Allergies Allergy/AdvReac Type Severity Reaction Status Date / Time No Known Allergies Allergy Verified 07/11/23 01:45 Home Medications Medication Instructions Recorded Confirmed Type albuterol sulfate 90 mcg/actuation 1 puff inhalation Q6H PRN 10/25/18 07/11/23 History aerosol inhaler (Ventolin HFA) Shortness Of Breath Or Wheezing albuterol sulfate 90 mcg/actuation 2 inha inhalation Q6H PRN 06/17/23 07/11/23 Rx aerosol inhaler shortness of breath or wheezing #1 inhaler buspirone 5 mg tablet 5 mg PO BID 07/11/23 07/11/23 History doxepin 50 mg capsule 50 mg PO HS 07/11/23 07/11/23 History guaifenesin 100 mg/5 mL oral liquid 0 mg PO Q4H PRN Cough 07/11/23 07/11/23 History Patient History Medical History No pertinent family history Rib pain on left side Left facial swelling Dental abscess Surgical History No pertinent past surgical history Family History Other No pertinent family history in first degree relatives Social History Smoking Status: Current every day smoker Tobacco Type: E-cigarettes / Vaping Hx Alcohol Use: No Hx Substance Use: No Preferred Language: Omani marital status: Single Current Living Situation: Family current occupational status: student Feels Safe at Home: Yes Review of Systems Review of Systems: All systems reviewed & are unremarkable except as noted in Subjective Physical Exam Constitutional: WD/WN, vitals as above Neck: trachea midline, no thyromegaly Respiratory: + cough; no respiratory distress, no lab ored breathing and not tachypneic Auscultation: + wheezes; no crackles Cardiovascular: RRR, no murmur, no edema Gastrointestinal (Abdomen): normal bowel sounds, soft, nontender, no hepatosplenomegaly Musculoskeletal: Extremities: extremities normal to inspection Skin: no rashes, warm and dry Neurologic: Nonfocal exam Lymphatic: no cervical lymphadenopathy Results & Data Results & Data Vital Signs (Past 12 Hours) Vital Signs Temp Pulse Pulse Resp BP BP Pulse Ox 07/11/23 07:14 88 18 94 07/11/23 06:40 84 25 H 93 07/11/23 06:30 79 24 94 07/11/23 06:20 68 24 96 07/11/23 06:10 77 23 93 07/11/23 06:00 66 25 H 93 07/11/23 05:50 95 H 20 93 07/11/23 05:40 71 26 H 93 07/11/23 05:30 86 20 95 07/11/23 05:20 98 H 22 94 07/11/23 05:13 85 22 94 07/11/23 05:13 85 22 118/68 95 07/11/23 05:10 95 H 27 H 94 07/11/23 05:00 98 H 14 95 07/11/23 04:50 77 19 92 07/11/23 04:40 79 22 93 07/11/23 04:30 69 22 92 07/11/23 04:20 72 20 92 07/11/23 04:13 74 07/11/23 04:10 76 22 93 07/11/23 04:00 105 H 20 95 07/11/23 04:00 104/52 L 07/11/23 03:50 85 23 92 07/11/23 03:40 85 22 92 07/11/23 03:30 110/61 07/11/23 03:30 85 24 93 07/11/23 03:20 85 22 92 07/11/23 03:10 85 20 92 07/11/23 03:00 96 H 25 H 91 07/11/23 03:00 115/60 07/11/23 03:00 07/11/23 02:50 84 34 H 92 07/11/23 02:40 84 24 92 07/11/23 02:30 89 25 H 106/50 L 91 07/11/23 02:00 105 H 23 102/55 L 95 07/11/23 01:30 73 21 95/57 L 93 07/11/23 01:00 104 H 21 136/76 94 07/11/23 00:00 86 23 99/51 L 92 07/10/23 23:54 134 H 20 137/87 94 07/10/23 23:16 80 16 95 07/10/23 23:00 105 H 23 99/56 L 92 07/10/23 22:42 95 07/10/23 22:41 132/90 92 07/10/23 22:30 84 19 132/90 95 07/10/23 21:31 107 H 43 H 103/84 93 07/10/23 21:00 96 H 18 122/64 97 07/10/23 20:50 93 07/10/23 20:48 120 H 07/10/23 20:34 98 H 33 H 133/95 91 07/10/23 20:13 36.9 C 96 H 22 126/76 96 Pulse Ox O2 Del Method O2 Del Method 07/11/23 07:14 Room Air 07/11/23 06:40 07/11/23 06:30 07/11/23 06:20 07/11/23 06:10 07/11/23 06:00 07/11/23 05:50 07/11/23 05:40 07/11/23 05:30 07/11/23 05:20 07/11/23 05:13 07/11/23 05:13 07/11/23 05:10 07/11/23 05:00 07/11/23 04:50 07/11/23 04:40 07/11/23 04:30 07/11/23 04:20 07/11/23 04:13 07/11/23 04:10 07/11/23 04:00 07/11/23 04:00 07/11/23 03:50 07/11/23 03:40 07/11/23 03:30 07/11/23 03:30 07/11/23 03:20 07/11/23 03:10 07/11/23 03:00 07/11/23 03:00 07/11/23 03:00 92 Room Air 07/11/23 02:50 07/11/23 02:40 07/11/23 02:30 Room Air 07/11/23 02:00 07/11/23 01:30 Room Air 07/11/23 01:00 Room Air 07/11/23 00:00 Room Air 07/10/23 23:54 07/10/23 23:16 Room Air 07/10/23 23:00 07/10/23 22:42 Room Air 07/10/23 22:41 07/10/23 22:30 Room Air 07/10/23 21:31 07/10/23 21:00 07/10/23 20:50 Room Air 07/10/23 20:48 07/10/23 20:34 Room Air 07/10/23 20:13 Room Air Critical Care Results & Data Vital Signs (Past 12 Hours) Vital Signs Temp Pulse Pulse Resp BP BP Pulse Ox 07/11/23 08:05 79 07/11/23 07:14 88 18 94 07/11/23 06:40 84 25 H 93 07/11/23 06:30 79 24 94 07/11/23 06:20 68 24 96 07/11/23 06:10 77 23 93 07/11/23 06:00 66 25 H 93 07/11/23 05:50 95 H 20 93 07/11/23 05:40 71 26 H 93 07/11/23 05:30 86 20 95 07/11/23 05:20 98 H 22 94 03/19/24 05:13 85 22 94 07/11/23 05:13 85 22 118/68 95 07/11/23 05:10 95 H 27 H 94 07/11/23 05:00 98 H 14 95 07/11/23 04:50 77 19 92 07/11/23 04:40 79 22 93 07/11/23 04:30 69 22 92 07/11/23 04:20 72 20 92 07/11/23 04:13 74 07/11/23 04:10 76 22 93 07/11/23 04:00 105 H 20 95 07/11/23 04:00 104/52 L 07/11/23 03:50 85 23 92 07/11/23 03:40 85 22 92 07/11/23 03:30 110/61 07/11/23 03:30 85 24 93 07/11/23 03:20 85 22 92 07/11/23 03:10 85 20 92 07/11/23 03:00 96 H 25 H 91 07/11/23 03:00 115/60 07/11/23 03:00 07/11/23 02:50 84 34 H 92 07/11/23 02:40 84 24 92 07/11/23 02:30 89 25 H 106/50 L 91 07/11/23 02:00 105 H 23 102/55 L 95 07/11/23 01:30 73 21 95/57 L 93 07/11/23 01:00 104 H 21 136/76 94 07/11/23 00:00 86 23 99/51 L 92 07/10/23 23:54 134 H 20 137/87 94 07/10/23 23:16 80 16 95 07/10/23 23:00 105 H 23 99/56 L 92 07/10/23 22:42 95 07/10/23 22:41 132/90 92 07/10/23 22:30 84 19 132/90 95 07/10/23 21:31 107 H 43 H 103/84 93 07/10/23 21:00 96 H 18 122/64 97 07/10/23 20:50 93 07/10/23 20:48 120 H 07/10/23 20:34 98 H 33 H 133/95 91 07/10/23 20:13 36.9 C 96 H 22 126/76 96 Pulse Ox O2 Del Method O2 Del Method 07/11/23 08:05 07/11/23 07:14 Room Air 07/11/23 06:40 07/11/23 06:30 07/11/23 06:20 07/11/23 06:10 07/11/23 06:00 07/11/23 05:50 07/11/23 05:40 07/11/23 05:30 07/11/23 05:20 07/11/23 05:13 07/11/23 05:13 07/11/23 05:10 07/11/23 05:00 07/11/23 04:50 07/11/23 04:40 07/11/23 04:30 07/11/23 04:20 07/11/23 04:13 07/11/23 04:10 07/11/23 04:00 07/11/23 04:00 07/11/23 03:50 07/11/23 03:40 07/11/23 03:30 07/11/23 03:30 07/11/23 03:20 07/11/23 03:10 07/11/23 03:00 07/11/23 03:00 07/11/23 03:00 92 Room Air 07/11/23 02:50 07/11/23 02:40 07/11/23 02:30 Room Air 07/11/23 02:00 07/11/23 01:30 Room Air 07/11/23 01:00 Room Air 07/11/23 00:00 Room Air 07/10/23 23:54 07/10/23 23:16 Room Air 07/10/23 23:00 07/10/23 22:42 Room Air 07/10/23 22:41 07/10/23 22:30 Room Air 07/10/23 21:31 07/10/23 21:00 07/10/23 20:50 Room Air 07/10/23 20:48 07/10/23 20:34 Room Air 07/10/23 20:13 Room Air Lab & Micro Results (Past 24 Hours) RBC 4.20 M/uL (4.20-5.40) 07/11/23 WBC 7.72 K/ul (4.8-10.8) 07/11/23 Hgb 11.9 g/dl (12.0-16.0) L 07/11/23 Hct 34.5 % (37.0-47.0) L 07/11/23 MCV 82.1 fL (80.0-100.0) 07/11/23 MCH 28.3 pg (25.0-34.0) 07/11/23 MCHC 34.5 g/dL (32.0-36.0) 07/11/23 RDW Standard Deviation 36.8 fL (36.4-46.3) 07/11/23 RDW Coefficient of Variation 12.4 % (11.5-14.5) 07/11/23 Plt Count 263 K/uL (130-400) 07/11/23 MPV 11.2 fL (9.4-12.4) 07/11/23 Neutrophils (%) (Auto) 89.2 % 07/11/23 Lymphocytes (%) (Auto) 8.7 % 07/11/23 Monocytes # (Auto) 0.11 K/uL (0.11-0.59) 07/11/23 Eosinophils # (Auto) 0.01 K/uL (0.00-0.50) 07/11/23 Immature Granulocyte % (Auto) 0.5 % 07/11/23 Neutrophils # (Auto) 6.88 K/uL (1.40-6.50) H 07/11/23 Lymphocytes # (Auto) 0.67 K/uL (1.20-3.40) L 07/11/23 Monocytes # (Auto) 0.11 K/uL (0.11-0.59) 07/11/23 Eosinophils # (Auto) 0.01 K/uL (0.00-0.50) 07/11/23 Basophils # (Auto) 0.01 K/uL (0.00-0.20) 07/11/23 Immature Granulocyte # (Auto) 0.04 K/uL (0.01-0.20) 4 Na 137 mmol/L (136-145) 07/11/23 K 4.2 mmol/L (3.5-5.1) 07/11/23 Cl 108 mmol/L (98-107) H 07/11/23 CO2 20 mmol/L (21-32) L 07/11/23 Anion Gap 9 (3-11) 07/11/23 BUN 6 mg/dl (6-23) 07/11/23 Creatinine 0.49 mg/dl (0.6-1.2) L 07/11/23 Estimated GFR ( Amer) > 150.0 ml/min 07/11/23 Estimated GFR (Non-Af Amer) 138.3 ml/min 07/11/23 BUN/Creatinine Ratio 12.2 (10-20) 07/11/23 Glu 149 mg/dl (70-99(Fasting)) H 07/11/23 Ca 8.9 mg/dl (8.6-10.3) 07/11/23 Total Bilirubin 0.6 mg/dl (0.2-1.0) 07/10/23 AST 16 U/L (13-39) 07/10/23 ALT 10 U/L (7-52) 07/10/23 Alkaline Phosphatase 86 U/L (34-104) 07/10/23 TP 7.8 gm/dl (6.0-8.3) 07/10/23 Albumin 4.6 gm/dl (3.4-5.0) 07/10/23 Globulin 3.2 gm/dl (2.5-4.0) 07/10/23 Albumin/Globulin Ratio 1.4 (0.9-2) 07/10/23 Mg 2.0 mg/dl (1.7-2.4) 07/11/23 07:05 Calcium Level 8.9 mg/dl (8.6-10.3) 07/11/23 07:05 Prothromb Time International Ratio 1.0 (0.9-1.1) 07/10/23 20:2 0 Diagnostic Findings (Past 24 Hours) Chest X-Ray 07/10/23 20:15 XR chest 1V portable CLINICAL HISTORY: Dyspnea TECHNIQUE: Single frontal radiograph of the chest was obtained. Comparison: Comparison is made to chest radiograph 06/17/2023 FINDINGS: No lines and tubes are seen. The cardiomediastinal silhouette is normal. The kingsley gs are clear. No evidence of pleural effusion or pneumothorax. IMPRESSION: No acute abnormalities and in particular no radiographic evidence of pneumonia. ACT 112: Negative or not required by law. Electronically signed by: Pablo Wilson M.D. 07/11/2023 6:59 AM Chest CTA 07/10/23 21:08 Exam(s): CTA CHEST IV Amt: 87 ml opti 320 EXAM: CT Angiography Chest With Intravenous Contrast CLINICAL HISTORY: Reason for exam: PE. TECHNIQUE: Axial computed tomographic angiography images of the chest with intravenous contrast. Automated exposure control was utilized for the study. A dose lowering technique was utilized adhering to the principles of ALARA. MIP reconstructed images were created and reviewed. COMPARISON: No relevant prior studies available. FINDINGS: LUNGS: No focal consolidation, pleural effusion, or pneumothorax. HEART: Within normal limits. VASCULATURE: No acute pulmonary embolism. THYROID: Within normal limits. MEDIASTINUM + LYMPH NODES: There are no pathologically enlarged mediastinal, hilar, or axillary lymph nodes. SUPERIOR ABDOMEN: The included portions of the superior abdomen are within normal limits. MUSCULOSKELETAL: Within normal limits. IMPRESSION: No acute pulmonary embolism. Electronically signed by: Wali Whitehead MD 07/10/23 23:05 PM I & O Totals 24 Hours 07/10/23 07/11/23 07/12/23 06:59 06:59 06:59 Intake Total 1100 / 1100 Balance 1100 / 1100 Cumulative 07/10/23 20:04 thru 07/10/23 22:08 Intake Total 1100 Balance 1100 RT Ventilator Mngmt (Last Documented) Ventilator Ordered Settings Respiratory Rate 18 07/11/23 07:14 Ventilator - PT Measurements Respiratory Rate 18 PG Care Time/CCT Total # of Minutes Spent Total Time Spent with Patient: Total time spent is greater than 50% in coordination of care (as documented) at patient's floor/unit and/or counseling patient: Coding Level of Care Code 07751 OFFICE CONSULT LVL 4/40M Diagnoses Asthma J45.909 E-cigarette or vaping product use associated lung injury (EVALI) U07.0
[2023-07-11 08:25] LABS: Troponin I High Sensitivity < 2.3 pg/ml (0-14)
[2023-07-11] MEDS ORDERED: XOPENEX/ATROVENT 1.25mg/0.5MG NEB COMBO NEB SCH (09:00)
[2023-07-11] MEDS: methylPREDNISolone 40 MG in SYRINGE 0 ML IV SCH (09:24)
[2023-07-11] MEDS: busPIRone 5 MG TAB PO SCH (09:24)
[2023-07-11] MEDS: DOXYCYCLINE HYCLATE 100 MG CAP PO SCH (09:24)
[2023-07-11] MEDS: AZITHROMYCIN 250 MG TAB PO SCH (09:44)
[2023-07-11] MEDS: UMECLIDINIUM BROMIDE 62.5MCG/BLISTER 7 PUFFS/INHALER INH SCH (09:45)
[2023-07-11] MEDS: FLUTICASONE/VILANTEROL 200/25MCG 14 PUFFS/INHALER INH SCH (09:45)
[2023-07-11] MEDS ORDERED: ONDANSETRON INJ 2 MG/ML 2 ML VIAL IV PRN (10:58)
--- NOTE | 2023-07-11 11:05 | Communication Note ---
Date of Service: July 11, 2023 Patient evaluated at bedside in ED. Reports feeling concerned over symptoms and not sure ready to discharge quite yet. Exam revealed anxious woman, saturating on room air, no respiratory distress at time of exam, trace wheezes and dry cough. #SOB with wheezing #Peripheral eosinophilia, c/f probable asthma #Vape use, concern for EVALI -Pulmonary on consult, suspect likely asthma with question of EVALI; patient reports symptoms recently triggered by vape/smoking -Continue solumedrol IV, plan to taper to prednisone 20mg BID once wheezing resolves and clinically improved -Continue Azithromycin x 5 days -Will discharge with ICS/LABA and LAMA -Plan for Pulm follow up with OP CT in 2-[address] findings -Encouraged continued cessation of inhaled products -Symptomtic support Rest of plan per H&P; formal progress note to follow in am
[2023-07-11] MEDS: ONDANSETRON INJ 2 MG/ML 2 ML VIAL IV STA (11:09)
[2023-07-11] MEDS: ALBUTEROL HFA 8 GM INHALER INH PRN (14:00)
--- NOTE | 2023-07-11 14:40 | Electrocardiogram Report ---
Test Reason : Blood Pressure : / mmHG Vent. Rate : 086 BPM Atrial Rate : 086 BPM P-R Int : 134 ms QRS Dur : 092 ms QT Int : 348 ms P-R-T Axes : 066 071 -08 degrees QTc Int : 416 ms Sinus rhythm with sinus arrhythmia with occasional Premature ventricular complexes Incomplete right bundle branch block Abnormal ECG When compared with ECG of 24-JAN-2021 21:21, Premature ventricular complexes are now Present Nonspecific T wave abnormality now evident in Inferior leads T wave inversion now evident in Anterior leads Confirmed by Markie Childs ([id number]) on 07/11/2023 2:40:03 PM Referred By: REFERRED SELF Confirmed By:Mike Childs
[2023-07-11] MEDS: guaiFENesin/CODEINE 100MG/10MG 5ML UDC PO STA (18:25)
[2023-07-11] MEDS: hydrOXYzine HCl 25 MG TAB PO STA (18:25)
[2023-07-11] MEDS: ACETAMINOPHEN 325 MG TAB PO PRN (20:17)
[2023-07-11] MEDS: DOXEPIN HCL 50 MG CAPSULE PO SCH (22:15)
[2023-07-12 08:01] LABS: Basophils # (auto) 0.01 K/uL (0.00-0.20); Basophils % (auto) 0.1 %; Eosinophils # (auto) 0.03 K/uL (0.00-0.50); Eosinophils % (auto) 0.2 %; Hemoglobin 12.1 g/dl (12.0-16.0); Immature Granulocytes # (auto) 0.07 K/uL (0.01-0.20); Immature Granulocytes % (auto) 0.5 %; Lymphocytes # (auto) 0.94 K/uL (1.20-3.40); Lymphocytes % (auto) 6.7 %; Mean Corpuscular Hemoglobin 28.5 pg (25.0-34.0); Mean Corpuscular Hgb Conc 33.6 g/dL (32.0-36.0); Mean Corpuscular Volume 84.9 fL (80.0-100.0); Monocytes # (auto) 0.69 K/uL (0.11-0.59); Monocytes % (auto) 4.9 %; Neutrophils % (auto) 87.6 %; Platelet Count 267 K/uL (130-400); RDW Coefficient of Variation 12.8 % (11.5-14.5); RDW Standard Deviation 39.1 fL (36.4-46.3); Red Blood Count 4.24 M/uL (4.20-5.40); White Blood Count 13.94 K/ul (4.8-10.8)
--- NOTE | 2023-07-12 09:01 | Pulmonology Progress Note ---
Date of Service July 12, 2023 Assessment & Plan (1) Asthma: (2) E-cigarette or vaping product use associated lung injury (EVALI): Plan Impression: 22-year-old female with extensive history of vaping and marijuana use admitted with shortness of breath and wheezing. She was positive for influenza B last month but her BioFire this time around is negative. She did have some patchy airspace opacities on her CT scan and on presentation had 10% peripheral eosinophilia. Differential would include asthma exacerbation, atypical pneumonia, versus EVALI. Recommendations: 1. Probable asthma: Okay to transition to prednisone 20 mg twice a day for 5 days at which point in time it can be discontinued. Recommend outpatient PFTs and assessment of exhaled nitric oxide. Will add inhaled corticosteroid and long-acting beta agonist as well as LAMA to her regimen now. 2. Possible EVALI: Treatment is supportive care. Steroids are of unclear benefit in this disorder. There is no diagnostic study to confirm this. The patient was advised that she needs to stop vaping immediately. She should also avoid smoking marijuana. Follow-up CT scan in 10 to 12 weeks 3. Cough: Secondary to #1: Resolving 4. Pneumonia: Complete 5-day course of azithromycin Patient can be dismissed from the hospital. Feel free to contact us with questions or concerns Admission and Anticipated Discharge Date Admission Date: July 11, 2023 Subjective Patient seen and examined. EMR reviewed. The patient states she is feeling better. Her cough is less. Wheezing is improved. Chest tightness improved. Review of Systems 2 Review of Systems: All systems reviewed & are unremarkable except as noted in Subjective Physical Exam 2 Constitutional: WD/WN, vitals as above Neck: trachea midline, no thyromegaly Respiratory: no respiratory distress, no labored breathing, no cough and not tachypneic Auscultation: no crackles and no wheezes Cardiovascular: RRR, no murmur, no edema Gastrointestinal (Abdomen): normal bowel sounds, soft, nontender, no hepatosplenomegaly Musculoskeletal: Extremities: extremities normal to inspection Skin: no rashes, warm and dry Lymphatic: no cervical lymphadenopathy Results & Data Results & Data Vital Signs (Past 12 Hours) Vital Signs Temp Pulse Pulse Resp BP Pulse Ox O2 Del Method 07/12/23 08:06 36.5 C 72 19 106/65 92 Room Air 07/12/23 06:57 74 16 96 Room Air 07/12/23 02:49 36.6 C 79 20 100/52 L 93 Room Air 07/12/23 02:46 80 18 94 Room Air 07/11/23 23:20 54 L 07/11/23 22:53 69 20 97 Room Air 07/11/23 22:36 36.7 C 67 20 105/63 93 Room Air Laboratory Results 07/12/23 07:39 Diagnostic Findings No new imaging PG Care Time/CCT Total # of Minutes Spent Total Time Spent with Patient: Total time spent is greater than 50% in coordination of care (as documented) at patient's floor/unit and/or counseling patient: Coding Level of Care Code 10840 SUB INP/OBS CARE 2/35MIN Diagnoses Asthma J45.909 E-cigarette or vaping product use associated lung injury (EVALI) U07.0
[2023-07-12 09:02] LABS: BUN Creatinine Ratio 23.3 (10-20); Creatinine Clr Calc Pharmacy 121.7 ml/min; Est GFR (Non-African American) 129.4 ml/min; Potassium 3.9 mmol/L (3.5-5.1)
[2023-07-12] MEDS ORDERED: predniSONE 20 MG TAB PO SCH (09:15)
[2023-07-12 09:22] LABS: Ferritin 34.4 ng/ml (8-388)
[2023-07-12 10:40] LABS: Folate (Folic Acid),Ser orPlas 12.19 ng/ml (>5.38)
--- NOTE | 2023-07-12 11:30 | Discharge Summary ---
Discharge Summary Date of Service July 12, 2023 Notes For Next Care Provider Please ensure follow up with pulmonology Per pulmonology: -symptoms likely due to Asthma and E-cigarette or vaping product use associated lung injury (EVALI) -outpatient PFTs -assess exhaled nitric oxide -patient needs to stop vaping immediately. She should also avoid smoking marijuana. -repeat CT chest in 10-12 weeks Medication Changes From Visit Azithromycin 500mg daily x 2 more days Prednisone 20mg BID x 5 days Albuterol inhaler for prn use for SOB/wheezing Breo inhaler with Incruse inhaler for daily use (consider Trelegy as alternati ve) Admission HPI Per Admitting Provider 22-year-old female with past med history significant for depression and anxiety presents with shortness of breath and cough going on for last 3 days. States it is getting progressively worse. Having dry cough. Chest is hurting and back is hurting because of cough. Denies any fevers. No headache. No runny nose or sore throat. No nausea. No abdominal pain. Normal bowel and bladder movements. Patient seems to be very short of breath and not improved with a 1 hour-long nebs and magnesium and she was given dose of epinephrine in the ER. Currently sitting on the bed comfortably, slightly shaky. But able to talk in full sentences. Patient states she used nebs many many years ago. And recently she was using inhaler but was not helping. Patient states she has no diagnosis of asthma. Past medical history. As mentioned above Past surgical history none as per patient Social history. Denies vaping daily. Alcohol occasional. Family history. Father had diabetes and neuropathy. States mother does not go to doctors. Admission Exam Per Admitting Provider General- Not in acute distress Head- atraumatic Eyes- PERRL. ENT- oropharynx clear Neck- supple, no JVD. Lungs- clear to auscultation mild b/l wheezing, no crackles. Heart- regular rhythm; no murmur, no gallop. Abdomen- normal bowel sounds, soft, nontender, no distension. Extremities- no pretibial edema, no erythema seen Neuro- alert, oriented PERRL no facial palsy; no dysarthria; moves extremities. Principal Dx & Hospital Course #1 = Principal Diagnosis (1) Shortness of breath: (2) E-cigarette or vaping product use associated lung injury (EVALI): (3) Asthma: Plan Pt is a 22-year-old female with past med history significant for depression and anxiety who presented with shortness of breath and cough going on for the 3 days prior to arrival. Stated it is getting progressively worse, with dry cough. Chest and back pain. Denied any fevers. No headache. No runny nose or sore throat. No nausea. No abdominal pain. Normal bowel and bladder movements. Patient seemed to be very short of breath and not improved with a 1 hour-long nebs and magnesium and she was given dose of epinephrine in the ER. Currently sitting on the bed comfortably, slightly shaky. But able to talk in full sentences. Patient states she used nebs many many years ago. And recently she was using inhaler but was not helping. Patient states she has no diagnosis of asthma. Asthma E-cigarette or vaping product use associated lung injury (EVALI) Pt presenting with SOB Possibly asthma exacerbation. Mild bilateral wheezing on exam on admission Treated with IV Solu-Medrol 40 mg 3 times daily, nebs [id number] and as needed and p.o. doxycycline originally Also received two doses of azithromycin 250mg Transitioned to azithromycin 500mg daily for 2 more days, prednisone 20mg BID x 5 days and Albuterol inhaler for prn use for SOB/wheezing Also discharged with Breo inhaler + Incruse inhaler for daily use, consider Trelegy as an alternative Pulmonology consulted, recommended the following: -symptoms likely due to Asthma and E-cigarette or vaping product use associated lung injury (EVALI) -outpatient PFTs -assess exhaled nitric oxide -repeat CT chest in 10-12 weeks -patient needs to stop vaping immediately. She should also avoid smoking marijuana. Chest pain from coughing Serial chest xrays without acute abnormality Depression and anxiety Continue home medications Discharge Exam General: Alert, oriented. No acute distress Skin: No noted rashes or bruises Psych: Appropriate mood and affect Neuro: No gross deficits HEENT: NC/AT Chest: Nontender to palpation. CV: RRR, Normal s1, s2. No murmurs appreciated Resp: Breath sounds clear bilaterally with good air movement, no increased effort of breathing. Abdomen: Soft, nontender, nondistended. No guarding. No organomegaly appreciated. Extremities: No edema in lower extremities bilaterally. Updated Medication List Medication Instructions Recorded Confirmed Type albuterol sulfate 90 mcg/actuation 2 inha inhalation Q6H PRN 06/17/23 07/11/23 Rx aerosol inhaler shortness of breath or wheezing #1 inhaler buspirone 5 mg tablet 5 mg PO BID 07/11/23 07/11/23 History doxepin 50 mg capsule 50 mg PO HS 07/11/23 07/11/23 History guaifenesin 100 mg/5 mL oral liquid 0 mg PO Q4H PRN Cough 07/11/23 07/11/23 History albuterol sulfate 90 mcg/actuation 1 puff inhalation Q6H PRN 07/12/23 Rx aerosol inhaler (Ventolin HFA) Shortness Of Breath Or Wheezing #8.5 grams azithromycin 500 mg tablet 500 mg PO DAILY #2 tabs 07/12/23 Rx fluticasone furoate 200 1 inh inhalation DAILY #60 ea 07/12/23 Rx mcg-vilanterol 25 mcg/dose inhalation powder (Breo Ellipta) prednisone 20 mg tablet 20 mg PO BID #10 tabs 07/12/23 Rx umeclidinium 62.5 mcg/actuation 1 inh inhalation DAILY #30 ea 07/12/23 Rx blister powder for inhalation (Incruse Ellipta) Hospital Stay Data Consultations 07/10/23 23:44 ED Decision to Admit Stat 07/11/23 08:00 Consult Pulmonology Routine Diagnostic Imagining Performed 07/10/23 21:08 CT for pulmonary embolism PE [CT angio chest PE protocol] Stat Chest X-Ray 07/10/23 20:15 XR chest 1V portable CLINICAL HISTORY: Dyspnea TECHNIQUE: Single frontal radiograph of the chest was obtained. Comparison: Comparison is made to chest radiograph 06/17/2023 FINDINGS: No lines and tubes are seen. The cardiomediastinal silhouette is normal. The lungs are clear. No evidence of pleural effusion or pneumothorax. IMPRESSION: No acute abnormalities and in particular no radiographic evidence of pneumonia. ACT 112: Negative or not required by law. Electronically signed by: Pablo Wilson M.D. 07/11/2023 6:59 AM Chest CTA 07/10/23 21:08 Exam(s): CTA CHEST IV Amt: 87 ml opti 320 EXAM: CT Angiography Chest With Intravenous Contrast CLINICAL HISTORY: Reason for exam: PE. TECHNIQUE: Axial computed tomographic angiography images of the chest with intravenous contrast. Automated exposure control was utilized for the study. A dose lowering technique was utilized adhering to the principles of ALARA. MIP reconstructed images were created and reviewed. COMPARISON: No relevant prior studies available. FINDINGS: LUNGS: No focal consolidation, pleural effusion, or pneumothorax. HEART: Within normal limits. VASCULATURE: No acute pulmonary embolism. THYROID: Within normal limits. MEDIASTINUM + LYMPH NODES: There are no pathologically enlarged mediastinal, hilar, or axillary lymph nodes. SUPERIOR ABDOMEN: The included portions of the superior abdomen are within normal limits. MUSCULOSKELETAL: Within normal limits. IMPRESSION: No acute pulmonary embolism. Electronically signed by: Wali Whitehead MD 07/10/23 23:05 PM Pending Results Patient Have Any Pending Studies at Discharge: No Discharge Instructions Given to Patient (Per Discharging Provider) Jaja, You were admitted with trouble breathing. You were seen by the lung specialist who believes your symptoms were likely due to asthma and the effects of vaping. We are discharging you home with inhalers, steroids and antibiotics to help. Please take them as prescribed. We also ask that you keep close follow up with Pulmonology (the lung doctor) after discharge as you will need lung testing to confirm what it is causing your symptoms. They also recommend a follow up CT scan of your chest in 10-12 weeks. Please keep close follow up with your primary care provider after discharge as well. Please do not hesitate to come back to the emergency room if your symptoms worsen or return. It was a pleasure taking care of you while you were here. Total Time Total Time Spent Total Time Spent (In Minutes): > 30 minutes
== END 2023-07-12 13:01 | disposition home or self-care (01) | DRG 206 ==
LOC: ED 20:04 → EDINP 07-11 01:35 → SUATTDRO 07-11 01:35 → 4W 07-11 19:00

== ENCOUNTER 2024-03-26 15:53 | Inpatient (IN) ==
--- NOTE | 2024-03-26 16:14 | Emergency Department Note ---
Impression & Plan Asthma with exacerbation, Shortness of breath ED Provider Note Provider: Bib Man MD CHIEF COMPLAINT: Trouble breathing HISTORY OF PRESENT ILLNESS: Patient is a 23-year-old female past medical history of asthma and vaping associated lung injury presenting here today via ambulance from the doctor's office. Patient states of the past week she has had worsened breathing issues. Traveled recently to [place] and back to a [facility] but no other significant travel. No other sick contacts reported. No significant fevers but a cough and some chest discomfort. States been working hard to breathe. Inhalers at home but minimally effective. Given how bad her breathing was sent here via ambulance received IV steroids as well as additional breathing treatments there and in the ambulance on the way here. Still feeling short of breath. No significant abdominal pain or nausea or vomiting reported. Maybe a loose stool episode yesterday but no other significant diarrhea. No swelling reported. Patient states she has unfortunately continued to vape until last several days. PAST MEDICAL HISTORY: As noted above MEDICATIONS: Reviewed home medications has been using inhaler at home and Tylenol SOCIAL HISTORY: Vapes PHYSICAL EXAM: GENERAL: alert and oriented seated on stretcher with some work of breathing. Head: normocephalic and atraumatic EYES: No injection, discharge or icterus. EOMI. NECK: Trachea midline. Good range of motion ENT: Mucous membranes pink and moist. LUNGS: Airway patent. No retractions. Breath sounds inspiratory and expiratory wheeze without stridor. HEART: Regular rate and rhythm. No chest wall tenderness ABDOMEN: Soft and non-tender, without guarding or rebound. SKIN: Acyanotic, warm, dry, without rashes EXTREMITIES: Without swelling, tenderness or deformity NEUROLOGICAL: No focal deficits. No aphasia. No facial droop or slurred speech. Ambulatory. EK bpm sinus rhythm occasional PVC. Artifact but no clear acute ST segment elevation or depression with QTc of 433. CONTINUOUS CARDIAC MONITORING: was ordered and showed a heart rate of 70s-110s bpm in normal sinus rhythm to sinus tachycardia Patient's laboratory studies and imaging reviewed. Differential includes Reactive airway disease, pneumonia, pneumothorax, COPD, CHF, infections, cardiac ischemia, pulmonary embolism, musculoskeletal, gastrointestinal, as well as other pathologies. IMPRESSION/MEDICAL DECISION MAKING: Patient appears to be tripoding with some work of breathing but not hypoxic here upon arrival. Extensive wheezing. Received nebulizer treatments and IV steroids in rounds. History of asthma as well as vaping associated lung injury. Recent travel no leg swelling. Will obtain a CT of the chest to evaluate for PE or other lung parenchymal issue given her history of DLI. Respiratory viral panel sent. Basic labs obtained. Given some IV magnesium to see if is also help with her breathing. I doubt RPA, ADMINISTRATIVE SUPPORT CLERK, or epiglottitis in this patient. Chest x-ray unremarkable on my review and interpretation as well as radiology report. CTA of the chest per radiology without an findings of PE, pneumonia, or parenchymal inflammation. Respiratory viral panel negative. Blood work reassuring without findings of kidney injury, leukocytosis, or cardiac injury/elevated troponin. Patient still quite wheezy on exam. Patient is less tachypneic however. Already again received IV steroids for EMS and received multiple DuoNebs as well as IV magnesium. Given her ongoing breathing issues discussed with her staying for further care and treatment. She still significantly wheezy although again likely not hypoxic. In shared decision making she agreed with this plan and the hospitalist team was consulted. DIAGNOSIS: Acute asthma exacerbation, shortness of breath DISPOSITION: Hospitalist will evaluate Patient was agreeable with this plan. Past Med/Surg History Problem List (Updated 03/26/24 @ 22:56 by Bib Man M.D.) Asthma with exacerbation (Acute) Abnormal chest CT E-cigarette or vaping product use associated lung injury (EVALI) Asthma Shortness of breath (Acute) Leukocytosis (Acute) Diffuse wheezing (Acute) Obstructive airway disease (Acute) Dental abscess (Acute) Left facial swelling (Acute) Rib pain on left side (Acute) Medical History No pertinent family history Surgical History No pertinent past surgical history Family History Other No pertinent family history in first degree relatives Social History Smoking Status: Never smoker Tobacco Type: E-cigarettes / Vaping Age Started Using Tobacco: 16; Age Quit Using Tobacco: 23; Cigarettes Per Day: Quit July 2023; Second Hand Exposure: No; Do You Dip or Chew Tobacco: No; Tobacco Cessation Education Requested by Patient: No Hx Alcohol Use: No Hx Substance Use: Yes Last Used Substance: Days (ago) Last Used Substance Other:: has medical marijuana card Preferred Language: Serbian Communication Ability: Effective Business Solutions Architect Required: No Beliefs That Will Affect Care: None marital status: Single Current Living Situation: Significant Other current occupational status: student Other Information That Helps Us Care for You: No Feels Safe at Home: Yes Safety Concerns: Feels Safe At This Time Assistive Devices: None Allergies Allergies Allergy/AdvReac Type Severity Reaction Status Date / Time No Known Allergies Allergy Verified 03/26/24 18:13 Home Meds Home Medications Medication Instructions Recorded Confirmed albuterol sulfate 90 mcg/actuation 2 inha inhalation Q4H PRN 03/26/24 03/26/24 aerosol inhaler shortness of breath or wheezing budesonide-formoterol HFA 160 2 puff inhalation BID 03/26/24 03/26/24 mcg-4.5 mcg/actuation aerosol inhaler (Symbicort) buspirone 15 mg tablet 15 mg PO BID 03/26/24 03/26/24 doxepin 75 mg capsule 75 mg PO HS PRN Sleep 03/26/24 03/26/24 Results & Data (ED) Vital Signs Vital Signs - 24 hr 03/26/24 15:59 03/26/24 15:59 03/26/24 16:06 Temperature 36.8 C Temperature Source Oral Pulse Rate 96 H Pulse Rate [Apical] Respiratory Rate 28 H Respiratory Effort / Characteristics Labored Short of Breath Short of Breath Respiratory Depth Shallow Respiratory Pattern Tachypnea Blood Pressure 121/79 Blood Pressure [Left Arm] Blood Pressure Mean 93 Blood Pressure Mean [Left Arm] Pulse Oximetry 96 94 Oxygen Delivery Method Room Air Room Air Room Air Sepsis Recent Fever Within 48 Hours No Sepsis New/Unexplained Change in Mental Status No Sepsis Action Taken by Nursing No Action Required 03/26/24 16:06 03/26/24 16:07 03/26/24 16:27 Temperature Temperature Source Pulse Rate 85 Pulse Rate [Apical] 125 H 101 H Respiratory Rate 26 H 34 H 28 H Respiratory Effort / Characteristics Spontaneous Short of Breath Respiratory Depth Respiratory Pattern Blood Pressure Blood Pressure [Left Arm] 121/79 Blood Pressure Mean Blood Pressure Mean [Left Arm] 93 Pulse Oximetry 97 94 95 Oxygen Delivery Method Room Air Room Air Room Air Sepsis Recent Fever Within 48 Hours Sepsis New/Unexplained Change in Mental Status Sepsis Action Taken by Nursing 03/26/24 16:43 03/26/24 18:00 Temperature Temperature Source Pulse Rate 71 Pulse Rate [Apical] 111 H Respiratory Rate 20 Respiratory Effort / Characteristics Respiratory Depth Respiratory Pattern Blood Pressure Blood Pressure [Left Arm] 132/64 Blood Pressure Mean Blood Pressure Mean [Left Arm] 86 Pulse Oximetry 98 Oxygen Delivery Method Room Air Sepsis Recent Fever Within 48 Hours Sepsis New/Unexplained Change in Mental Status Sepsis Action Taken by Nursing Laboratory Data 03/26/24 16:05 03/26/24 16:05 Lab Results 03/26/24 03/26/24 03/26/24 Range/Units 16:05 16:09 16:16 WBC 9.23 (4.8-10.8) K/ul RBC 4.52 (4.20-5.40) M/uL Hgb 13.0 (12.0-16.0) g/dl POC Hgb 12.9 (12.0-16.0) g/dl Hct 38.0 (37.0-47.0) % POC Hct 38 (37-47) % MCV 84.1 (80.0-100.0) fL MCH 28.8 (25.0-34.0) pg MCHC 34.2 (32.0-36.0) g/dL RDW Std Deviation 37.0 (36.4-46.3) fL RDW Coeff of Dedra 12.2 (11.5-14.5) % Plt Count 303 (130-400) K/uL MPV 10.5 (9.4-12.4) fL Immature Gran % (Auto) 1.0 % Neut % (Auto) 37.8 % Lymph % (Auto) 44.4 % [place] % (Auto) 6.9 % Eos % (Auto) 9.2 % Baso % (Auto) 0.7 % Neut # (Auto) 3.49 (1.40-6.50) K/uL Lymph # (Auto) 4.10 H (1.20-3.40) K/uL [place] # (Auto) 0.64 H (0.11-0.59) K/uL Eos # (Auto) 0.85 H (0.00-0.50) K/uL Baso # (Auto) 0.06 (0.00-0.20) K/uL Immature Gran # (Auto) 0.09 (0.01-0.20) K/uL PT 10.9 (9.0-12.0) Seconds INR 1.0 (0.9-1.1) POC Sodium 142 (135-144) mmol/L Sodium 140 (136-145) mmol/L POC Potassium 3.2 L (3.3-5.0) mmol/L Potassium 3.3 L (3.5-5.1) mmol/L POC Chloride 106 (101-112) mmol/L Chloride 107 (98-107) mmol/L Carbon Dioxide 24 (21-32) mmol/L POC Total CO2 20 L (24-31) mmol/L Anion Gap 9 (3-11) POC Anion Gap 21.0 (16-25) mmol/L POC BUN 3 L (7-18) mg/dl BUN 5 L (6-23) mg/dl Creatinine 0.67 (0.6-1.2) mg/dl POC Creatinine 0.6 (0.6-1.3) mg/dl Est Cr Clr Drug Dosing 108.0 ml/min eGFR 125.87 BUN/Creatinine Ratio 7.5 L (10-20) Glucose 100 H (70-99(Fasting)) mg/dl POC Glucose (other) 98 (70-99) mg/dl Calcium 9.1 (8.6-10.3) mg/dl POC Ioniz Calcium Trang 1.16 (1.12-1.32) mmol/l Total Bilirubin 0.4 (0.2-1.0) mg/dl AST 16 (13-39) U/L ALT 13 (7-52) U/L Alkaline Phosphatase 80 (34-104) U/L Troponin I High Sens < 2.3 (0-14) pg/ml Total Protein 7.0 (6.0-8.3) gm/dl Albumin 4.5 (3.4-5.0) gm/dl Globulin 2.5 (2.5-4.0) gm/dl Albumin/Globulin Ratio 1.8 (0.9-2) HCG, Qual Negative (Negative) Adenovirus (PCR) Not Detected (NotDetected) B. pertussis DNA (PCR) Not Detected (NotDetected) B.parapertussis DNA PCR Not Detected (NotDetected) C. pneumoniae DNA (PCR) Not Detected (NotDetected) Coronavirus OC43 (PCR) Not Detected (NotDetected) Coronavirus HKU1 (PCR) Not Detected (NotDetected) Coronavirus 229E (PCR) Not Detected (NotDetected) SARS-CoV-2 (PCR) Not Detected (NotDetected) Coronavirus NL63 (PCR) Not Detected (NotDetected) Human Metapneumovir PCR Not Detected (NotDetected) Influenza Type A (PCR) Not Detected (NotDetected) Influenza Type B (PCR) Not Detected (NotDetected) M. pneumoniae (PCR) Not Detected (NotDetected) Parainfluenza 1 (PCR) Not Detected (NotDetected) Parainfluenza 2 (PCR) Not Detected (NotDetected) Parainfluenza 3 (PCR) Not Detected (NotDetected) Parainfluenza 4 (PCR) Not Detected (NotDetected) RSV (PCR) Not Detected (NotDetected) Entero/Rhino (PCR) Not Detected (NotDetected) Administered Medications Buspirone HCl (Buspirone 15 Mg Tab) 15 mg PO BID VISHNU Stop: 04/25/24 21:04 Last Admin: 03/26/24 21:08 Dose: Not Given Documented By: JERSON Doxepin HCl (Doxepin Hcl 75 Mg Capsule) 75 mg PO HS PRN PRN Reason: Sleep Stop: 04/25/24 21:04 Last Admin: 03/26/24 22:44 Dose: 75 mg Documented By: JERSON Levalbuterol HCl (Levalbuterol Hcl 0.63 Mg/3 Ml Neb) 0.63 mg NEB Q8R VISHNU; Protocol Stop: 04/25/24 22:59 Last Admin: 03/26/24 22:06 Dose: Not Given Documented By: DARYL Discontinued Medications Albuterol (Albut/Ipratrop 3mg/0.5mg Neb 3 Ml Vial) 12 ml NEB ONE ONE; Protocol Stop: 03/26/24 16:10 Last Admin: 03/26/24 16:24 Dose: 12 ml Documented By: GREGORIO Magnesium Sulfate/Dextrose (Magnesium Sulfate / D5w) 1 gm in 100 mls @ 600 mls/hr IV Q10M VISHNU Stop: 03/26/24 16:29 Last Infusion: 03/26/24 16:51 Dose: Infused Documented By: Admin: 03/26/24 16:40 Dose: 600 mls/hr Documented By: Infusion: 03/26/24 16:40 Dose: Infused Documented By: Admin: 03/26/24 16:16 Dose: 600 mls/hr Documented By: FAYE Ioversol (Optiray 320 125ml) 119 ml IV ONCE ONE Stop: 03/26/24 16:35 Last Admin: 03/26/24 16:34 Dose: 119 ml Documented By: JAH Ketorolac Tromethamine (Ketorolac Tromethamine 15 Mg/Ml Vial) 10 mg IV NOW ONE Stop: 03/26/24 16:10 Last Admin: 03/26/24 16:17 Dose: 10 mg Documented By: FAYE Levalbuterol HCl (Levalbuterol Hcl 0.63 Mg/3 Ml Neb) Confirm Administered Dose 0.63 mg .ROUTE .STK-MED ONE Stop: 03/26/24 22:00 Last Admin: 03/26/24 22:06 Dose: 0.63 mg Documented By: DARYL Potassium Chloride (Potassium Chloride Crtab 20 Meq Tabcr) 40 meq PO NOW STA Stop: 03/26/24 18:46 Last Admin: 03/26/24 18:54 Dose: 40 meq Documented By: JOSEMANUEL Imaging Data Radiologist's Impression: Chest X-Ray 03/26/24 16:04 EXAM: Chest x-ray one-view portable CLINICAL HISTORY: Cough PRIORS: 09/05/2023, dating back to 06/17/2023 TECHNIQUE: Frontal view chest FINDINGS: The chest is well-expanded. No airspace consolidation, effusion or congestive changes. Heart size is normal. No pneumothorax. Trachea is patent. Osseous structures demonstrate no acute abnormality. No radiopaque foreign body. IMPRESSION: No plain film evidence of an acute cardiopulmonary process. Electronically signed by Anne-Marie Gómez 03-26-2024 4:25 PM Chest CTA 03/26/24 16:09 EXAM: CT angio chest PE protocol CLINICAL HISTORY: cough, chest pain, r/o pe 119 cc''s optiray 320 TECHNIQUE: CT angiography of the chest was performed with intravenous contrast with the following protocol: axial images with, reconstructed coronal and sagittal images. 119 ccs optiray 320 was administered using automated injection techniques. Bolus tracking was employed to optimize arterial phase imaging. One of these 3D techniques was utilized: Maximum Intensity Pixel (MIP), 3D Reconstructed Images, Volume Rendered Images, Surface Shaded Rendering. One of the following dose reduction techniques was utilized for this exam: Automated exposure control, adjustment of the mA and/or kV according to patient size, and use of iterative reconstruction. DLP: 260.55 mGy-cm, CTDI: 17.6 mGy. COMPARISON: CR dated 03/26/2024 has been reviewed. FINDINGS: Aorta and Great Vessels: Ascending Aorta: Normal in caliber, no aneurysm, dissection, or significant atherosclerosis. Aortic Arch: Normal in caliber, no aneurysm, dissection, or significant atherosclerosis. Descending Aorta: Normal in caliber, no aneurysm, dissection, or significant atherosclerosis. Pulmonary Arteries: The main pulmonary artery and its branches are patent. No evidence of pulmonary embolism or significant stenosis. Heart: Cardiac Chambers: Normal in size. No evidence of cardiomegaly. Pericardium: No pericardial effusion or thickening. Lungs and Pleura: Lungs are clear without evidence of consolidation, collapse, or focal lesions. No pleural effusion or pleural thickening. Mediastinum: No mediastinal mass or abnormal lymphadenopathy. Normal appearance of the trachea and central bronchi. Hilar Structures: Hilar structures are normal without enlargement. Chest Wall: No mass lesions or abnormalities in the chest wall. Vascular Structures: Superior Vena Cava: Patent without evidence of stenosis or thrombus. Inferior Vena Cava: Patent without evidence of stenosis or thrombus. Bones and Soft Tissues: No fractures, lytic, or blastic lesions of the visualized bony structures. Soft tissues are unremarkable. Upper abdomen: Mild superior indentation of the celiac artery, likely by the median arcuate ligament, needs clinical correlation IMPRESSION: 1. No chest vascular abnormalities. 2. The main pulmonary artery and its branches are patent. No evidence of pulmonary embolism or significant stenosis. 3. Mild superior indentation of the celiac artery, likely by the median arcuate ligament, needs clinical correlation. 4. Lungs are clear without evidence of consolidation, collapse, or focal lesions. 5. Resoluion of ground glass opacity of left lobe compared to prior CT 07/10/2023. 6. The findings concur with the chest X-ray. 7. No new findings. Electronically signed by Sahra Mercado 03-26-2024 5:08 PM Discharge Plan Visit Data Chief Complaint: Shortness of Breath/Dyspnea Stated Complaint: Shortness of Breath/Dyspnea ED Provider: Bib Man Discharge Problem: Asthma with exacerbation, Shortness of breath Patient Disposition: Admitted As Inpatient Discharge Instructions Interventions: ED Discharge Assessment Last Done: 03/26/24 20:43
[2024-03-26] MEDS: MAGNESIUM SULFATE / D5W 1 GM/100 ML BAG IV SCH (16:16)
[2024-03-26] MEDS: KETOROLAC TROMETHAMINE 15 MG/ML VIAL IV ONE (16:17)
[2024-03-26] MEDS: ALBUT/IPRATROP 3MG/0.5MG NEB 3 ML VIAL NEB ONE (16:24)
--- NOTE | 2024-03-26 16:26 | XRay Report ---
EXAM: Chest x-ray one-view portable CLINICAL HISTORY: Cough PRIORS: 09/05/2023, dating back to 06/17/2023 TECHNIQUE: Frontal view chest FINDINGS: The chest is well-expanded. No airspace consolidation, effusion or congestive changes. Heart size is normal. No pneumothorax. Trachea is patent. Osseous structures demonstrate no acute abnormality. No radiopaque foreign body. IMPRESSION: No plain film evidence of an acute cardiopulmonary process. Electronically signed by Anne-Marie Gómez 03-26-2024 4:25 PM
[2024-03-26 16:29] LABS: iSTAT Creatinine 0.6 mg/dl (0.6-1.3); iSTAT Hemoglobin 12.9 g/dl (12.0-16.0); iSTAT Ionized Calcium 1.16 mmol/l (1.12-1.32); iSTAT Potassium 3.2 mmol/L (3.3-5.0)
[2024-03-26 16:30] LABS: Basophils # (auto) 0.06 K/uL (0.00-0.20); Basophils % (auto) 0.7 %; Eosinophils # (auto) 0.85 K/uL (0.00-0.50); Eosinophils % (auto) 9.2 %; Immature Granulocytes # (auto) 0.09 K/uL (0.01-0.20); Lymphocytes % (auto) 44.4 %; Mean Corpuscular Hemoglobin 28.8 pg (25.0-34.0); Mean Corpuscular Hgb Conc 34.2 g/dL (32.0-36.0); Mean Corpuscular Volume 84.1 fL (80.0-100.0); Mean Platelet Volume 10.5 fL (9.4-12.4); Monocytes # (auto) 0.64 K/uL (0.11-0.59); Monocytes % (auto) 6.9 %; Neutrophils # (auto) 3.49 K/uL (1.40-6.50); Neutrophils % (auto) 37.8 %; Platelet Count 303 K/uL (130-400); RDW Coefficient of Variation 12.2 % (11.5-14.5); Red Blood Count 4.52 M/uL (4.20-5.40); White Blood Count 9.23 K/ul (4.8-10.8)
[2024-03-26] MEDS: OPTIRAY 320 125ml IV ONE (16:34)
[2024-03-26 16:39] LABS: Alanine Aminotransferase 13 U/L (7-52); Albumin Globulin Ratio 1.8 (0.9-2); Albumin Level 4.5 gm/dl (3.4-5.0); Alkaline Phosphatase 80 U/L (34-104); Anion Gap 9 (3-11); Aspartate Aminotransferase 16 U/L (13-39); BUN Creatinine Ratio 7.5 (10-20); Bilirubin,Total 0.4 mg/dl (0.2-1.0); Blood Urea Nitrogen 5 mg/dl (6-23); Calcium 9.1 mg/dl (8.6-10.3); Carbon Dioxide 24 mmol/L (21-32); Chloride 107 mmol/L (98-107); Globulin 2.5 gm/dl (2.5-4.0); Glucose 100 mg/dl (70-99(Fasting)); Potassium 3.3 mmol/L (3.5-5.1); Sodium 140 mmol/L (136-145)
[2024-03-26 16:46] LABS: Troponin I High Sensitivity < 2.3 pg/ml (0-14)
[2024-03-26 16:49] LABS: Pregnancy Test, Serum Negative (Negative)
[2024-03-26 16:50] LABS: Prothrombin Time 10.9 Seconds (9.0-12.0)
--- NOTE | 2024-03-26 17:08 | CT Scan Report ---
EXAM: CT angio chest PE protocol CLINICAL HISTORY: cough, chest pain, r/o pe 119 cc''s optiray 320 TECHNIQUE: CT angiography of the chest was performed with intravenous contrast with the following protocol: axial images with, reconstructed coronal and sagittal images. 119 ccs optiray 320 was administered using automated injection techniques. Bolus tracking was employed to optimize arterial phase imaging. One of these 3D techniques was utilized: Maximum Intensity Pixel (MIP), 3D Reconstructed Images, Volume Rendered Images, Surface Shaded Rendering. One of the following dose reduction techniques was utilized for this exam: Automated exposure control, adjustment of the mA and/or kV according to patient size, and use of iterative reconstruction. DLP: 260.55 mGy-cm, CTDI: 17.6 mGy. COMPARISON: CR dated 03/26/2024 has been reviewed. FINDINGS: Aorta and Great Vessels: Ascending Aorta: Normal in caliber, no aneurysm, dissection, or significant atherosclerosis. Aortic Arch: Normal in caliber, no aneurysm, dissection, or significant atherosclerosis. Descending Aorta: Normal in caliber, no aneurysm, dissection, or significant atherosclerosis. Pulmonary Arteries: The main pulmonary artery and its branches are patent. No evidence of pulmonary embolism or significant stenosis. Heart: Cardiac Chambers: Normal in size. No evidence of cardiomegaly. Pericardium: No pericardial effusion or thickening. Lungs and Pleura: Lungs are clear without evidence of consolidation, collapse, or focal lesions. No pleural effusion or pleural thickening. Mediastinum: No mediastinal mass or abnormal lymphadenopathy. Normal appearance of the trachea and central bronchi. Hilar Structures: Hilar structures are normal without enlargement. Chest Wall: No mass lesions or abnormalities in the chest wall. Vascular Structures: Superior Vena Cava: Patent without evidence of stenosis or thrombus. Inferior Vena Cava: Patent without evidence of stenosis or thrombus. Bones and Soft Tissues: No fractures, lytic, or blastic lesions of the visualized bony structures. Soft tissues are unremarkable. Upper abdomen: Mild superior indentation of the celiac artery, likely by the median arcuate ligament, needs clinical correlation IMPRESSION: 1. No chest vascular abnormalities. 2. The main pulmonary artery and its branches are patent. No evidence of pulmonary embolism or significant stenosis. 3. Mild superior indentation of the celiac artery, likely by the median arcuate ligament, needs clinical correlation. 4. Lungs are clear without evidence of consolidation, collapse, or focal lesions. 5. Resoluion of ground glass opacity of left lobe compared to prior CT 07/10/2023. 6. The findings concur with the chest X-ray. 7. No new findings. Electronically signed by Sahra Mercado 03-26-2024 5:08 PM
[2024-03-26 17:20] LABS: Adenovirus PCR Not Detected (NotDetected); Bordetella parapertussis PCR Not Detected (NotDetected); Bordetella pertussis PCR Not Detected (NotDetected); Chlamydia pneumoniae PCR Not Detected (NotDetected); Coronavirus 229E PCR Not Detected (NotDetected); Coronavirus CoV-2 (COVID19)PCR Not Detected (NotDetected); Coronavirus HKU1 PCR Not Detected (NotDetected); Coronavirus NL63 PCR Not Detected (NotDetected); Coronavirus OC43PCR Not Detected (NotDetected); Human Metapneumovirus PCR Not Detected (NotDetected); Influenza A PCR Not Detected (NotDetected); Influenza B PCR Not Detected (NotDetected); Mycoplasma pneumoniae PCR Not Detected (NotDetected); Parainfluenza Virus 1 PCR Not Detected (NotDetected); Parainfluenza Virus 2 PCR Not Detected (NotDetected); Parainfluenza Virus 3 PCR Not Detected (NotDetected); Parainfluenza Virus 4 PCR Not Detected (NotDetected); Respiratory Syncytial VirusPCR Not Detected (NotDetected); Rhinovirus/Enterovirus PCR Not Detected (NotDetected)
--- NOTE | 2024-03-26 18:47 | History & Physical Report ---
Date of Service March 26, 2024 Assessment & Plan (1) E-cigarette or vaping product use associated lung injury (EVALI): (2) Asthma: (3) Shortness of breath: Plan 23-year-old female with past med history significant for depression and anxiety, obstructive lung disease and hx of vaping who presents with shortness of breath for the past week. SOB Hx of Obstructive Lung disease/Asthma EVALI Patient presenting from PCP's office with concern for respiratory distress Reportedly received IV steroids and DuoNebs en route to the hospital States she has been having shortness of breath for the last week, using her as needed albuterol inhaler [id number] Not hypoxic on admission, reported wheezing resolved at the time of exam. patient not in respiratory distress at the time of exam Chest x-ray with no acute abnormality Chest CTA with no PE and no acute abnormality Respiratory BioFire unremarkable Received magnesium and DuoNeb treatment in the emergency room Continue with IV Solu-Medrol 60 mg daily and scheduled Xopenex breathing treatments Continue home Symbicort, as needed albuterol inhaler Pulmonary consult given patient follows with them and history of obstructive lung disease and EVALI Admitted for continued monitoring hypokalemia Replete as needed Continue other home meds as ordered. Diet: Regular DVT prophylaxis: SCDs, ambulation as tolerated Dispo: Home once medially stable History of Present Illness Chief Complaint: SOB Primary Care Provider: Anu Johnson MD 23-year-old female with past med history significant for depression and anxiety, obstructive lung disease and hx of vaping who presents with shortness of breath for the past week. History obtained with patient's partner at bedside. States that for the past week she has been having trouble with breathing. Can happen at any time. States she presented to her PCPs office today for further evaluation and was sent over to the emergency room for further evaluation of respiratory distress and wheezing noted there. Chart review shows patient was admitted for the same earlier in the year and did have follow-up with pulmonology where she had pulmonary function test completed which noted obstructive lung pathology. It was determined at that time that she likely had asthma as well as EVALI given her history of vaping at that time. Patient states that she quit vaping 3 days ago. States the only inhaler she uses at home is her as needed albuterol. Denies any use of the Symbicort that was prescribed at her last pulmonary visit. Denies any recent URI symptoms. Denies any known sick contacts. States she was just concerned as she was having significant trouble breathing that was progressing and requiring use of her inhaler at home [id number] instead of as needed. Patient reportedly received steroids and a breathing treatment en route to the hospital. Received IV mag and a breathing treatment in the emergency room. Allergies Allergy/AdvReac Type Severity Reaction Status Date / Time No Known Allergies Allergy Verified 03/26/24 18:13 Home Medications Medication Instructions Recorded Confirmed Type albuterol sulfate 90 mcg/actuation 2 inha inhalation Q4H PRN 03/26/24 03/26/24 History aerosol inhaler shortness of breath or wheezing budesonide-formoterol HFA 160 2 puff inhalation BID 03/26/24 03/26/24 History mcg-4.5 mcg/actuation aerosol inhaler (Symbicort) buspirone 15 mg tablet 15 mg PO BID 03/26/24 03/26/24 History doxepin 75 mg capsule 75 mg PO HS PRN Sleep 03/26/24 03/26/24 History Past Med/Surg History Problem List (Updated 03/26/24 @ 16:13 by Bib Man M.D.) Abnormal chest CT E-cigarette or vaping product use associated lung injury (EVALI) Asthma (Acute) Shortness of breath (Acute) Leukocytosis (Acute) Diffuse wheezing (Acute) Obstructive airway disease (Acute) Dental abscess (Acute) Left facial swelling (Acute) Rib pain on left side (Acute) Medical History No pertinent family history Surgical History No pertinent past surgical history Family History Other No pertinent family history in first degree relatives Social History Smoking Status: Current every day smoker Tobacco Type: E-cigarettes / Vaping Age Started Using Tobacco: 16; Age Quit Using Tobacco: 23; Cigarettes Per Day: Quit July 2023; Hx Alcohol Use: No Hx Substance Use: No Preferred Language: Polish Communication Ability: Effective 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 No acute distress Skin: No noted rashes or bruises Psych: Appropriate mood and affect HEENT: NC/AT Chest: Nontender to palpation. CV: RRR Resp: Breath sounds without wheezing at the time of exam bilaterally, no increased effort of breathing. patient with good air movement, not in respiratory distress Abdomen: Soft, nontender Extremities: No edema in lower extremities bilaterally. Results & Data Results & Data Vital Signs (Past 12 Hours) Vital Signs Temp Pulse Pulse Resp BP BP Pulse Ox 03/26/24 18:00 111 H 20 132/64 98 03/26/24 16:43 71 03/26/24 16:27 101 H 28 H 95 03/26/24 16:07 85 34 H 94 03/26/24 16:06 125 H 26 H 121/79 97 03/26/24 16:06 94 03/26/24 15:59 36.8 C 96 H 28 H 121/79 96 03/26/24 15:59 O2 Del Method 03/26/24 18:00 Room Air 03/26/24 16:43 03/26/24 16:27 Room Air 03/26/24 16:07 Room Air 03/26/24 16:06 Room Air 03/26/24 16:06 Room Air 03/26/24 15:59 Room Air 03/26/24 15:59 Room Air Diagnostic Findings Chest X-Ray 03/26/24 16:04 EXAM: Chest x-ray one-view portable CLINICAL HISTORY: Cough PRIORS: 09/05/2023, dating back to 06/17/2023 TECHNIQUE: Frontal view chest FINDINGS: The chest is well-expanded. No airspace consolidation, effusion or congestive changes. Heart size is normal. No pneumothorax. Trachea is patent. Osseous structures demonstrate no acute abnormality. No radiopaque foreign body. IMPRESSION: No plain film evidence of an acute cardiopulmonary process. Electronically signed by Anne-Marie Gómez 03-26-2024 4:25 PM Chest CTA 03/26/24 16:09 EXAM: CT angio chest PE protocol CLINICAL HISTORY: cough, chest pain, r/o pe 119 cc''s optiray 320 TECHNIQUE: CT angiography of the chest was performed with intravenous contrast with the following protocol: axial images with, reconstructed coronal and sagittal images. 119 ccs optiray 320 was administered using automated injection techniques. Bolus tracking was employed to optimize arterial phase imaging. One of these 3D techniques was utilized: Maximum Intensity Pixel (MIP), 3D Reconstructed Images, Volume Rendered Images, Surface Shaded Rendering. One of the following dose reduction techniques was utilized for this exam: Automated exposure control, adjustment of the mA and/or kV according to patient size, and use of iterative reconstruction. DLP: 260.55 mGy-cm, CTDI: 17.6 mGy. COMPARISON: CR dated 03/26/2024 has been reviewed. FINDINGS: Aorta and Great Vessels: Ascending Aorta: Normal in caliber, no aneurysm, dissection, or significant atherosclerosis. Aortic Arch: Normal in caliber, no aneurysm, dissection, or significant atherosclerosis. Descending Aorta: Normal in caliber, no aneurysm, dissection, or significant atherosclerosis. Pulmonary Arteries: The main pulmonary artery and its branches are patent. No evidence of pulmonary embolism or significant stenosis. Heart: Cardiac Chambers: Normal in size. No evidence of cardiomegaly. Pericardium: No pericardial effusion or thickening. Lungs and Pleura: Lungs are clear without evidence of consolidation, collapse, or focal lesions. No pleural effusion or pleural thickening. Mediastinum: No mediastinal mass or abnormal lymphadenopathy. Normal appearance of the trachea and central bronchi. Hilar Structures: Hilar structures are normal without enlargement. Chest Wall: No mass lesions or abnormalities in the chest wall. Vascular Structures: Superior Vena Cava: Patent without evidence of stenosis or thrombus. Inferior Vena Cava: Patent without evidence of stenosis or thrombus. Bones and Soft Tissues: No fractures, lytic, or blastic lesions of the visualized bony structures. Soft tissues are unremarkable. Upper abdomen: Mild superior indentation of the celiac artery, likely by the median arcuate ligament, needs clinical correlation IMPRESSION: 1. No chest vascular abnormalities. 2. The main pulmonary artery and its branches are patent. No evidence of pulmonary embolism or significant stenosis. 3. Mild superior indentation of the celiac artery, likely by the median arcuate ligament, needs clinical correlation. 4. Lungs are clear without evidence of consolidation, collapse, or focal lesions. 5. Resoluion of ground glass opacity of left lobe compared to prior CT 07/10/2023. 6. The findings concur with the chest X-ray. 7. No new findings. Electronically signed by Sahra Mercado 03-26-2024 5:08 PM
[2024-03-26] MEDS: POTASSIUM CHLORIDE CRTAB 20 MEQ TABCR PO STA (18:54)
[2024-03-26] MEDS ORDERED: ALBUTEROL HFA 8 GM INHALER INH PRN (21:05)
[2024-03-26] MEDS ORDERED: POLYETHYLENE (MIRALAX) 17 GM PACK PO PRN (21:05)
[2024-03-26] MEDS ORDERED: KETOROLAC TROMETHAMINE 15 MG/ML VIAL IV PRN (21:05)
[2024-03-26] MEDS ORDERED: ACETAMINOPHEN 500 MG TAB PO PRN (21:05)
[2024-03-26] MEDS: busPIRone 15 MG TAB PO SCH (21:08)
[2024-03-26] MEDS: LEVALBUTEROL HCL 0.63 MG/3 ML NEB NEB SCH (22:06)
[2024-03-26] MEDS: LEVALBUTEROL HCL 0.63 MG/3 ML NEB ONE (22:06)
[2024-03-26] MEDS: DOXEPIN HCL 75 MG CAPSULE PO PRN (22:44)
[2024-03-27 06:20] LABS: Hematocrit (blood only) 37.4 % (37.0-47.0); Hemoglobin 12.6 g/dl (12.0-16.0); Mean Corpuscular Hemoglobin 28.4 pg (25.0-34.0); Mean Corpuscular Hgb Conc 33.7 g/dL (32.0-36.0); Mean Corpuscular Volume 84.2 fL (80.0-100.0); Mean Platelet Volume 10.6 fL (9.4-12.4); Platelet Count 306 K/uL (130-400); RDW Coefficient of Variation 12.3 % (11.5-14.5); RDW Standard Deviation 37.4 fL (36.4-46.3); Red Blood Count 4.44 M/uL (4.20-5.40); White Blood Count 11.87 K/ul (4.8-10.8)
[2024-03-27 06:40] LABS: Basophils # (auto) 0.01 K/uL (0.00-0.20); Basophils % (auto) 0.1 %; Immature Granulocytes # (auto) 0.05 K/uL (0.01-0.20); Immature Granulocytes % (auto) 0.4 %; Lymphocytes # (auto) 0.84 K/uL (1.20-3.40); Lymphocytes % (auto) 7.1 %; Monocytes # (auto) 0.22 K/uL (0.11-0.59); Monocytes % (auto) 1.9 %; Neutrophils # (auto) 10.75 K/uL (1.40-6.50); Neutrophils % (auto) 90.5 %; Polychromasia 1+
[2024-03-27 06:48] LABS: BUN Creatinine Ratio 15.5 (10-20); Calcium 9.4 mg/dl (8.6-10.3); Creatinine Clr Calc Pharmacy 124.8 ml/min; Magnesium 2.1 mg/dl (1.7-2.4); Phosphorus 3.2 mg/dl (2.5-4.9); Potassium 4.1 mmol/L (3.5-5.1)
--- NOTE | 2024-03-27 08:02 | Pulmonary Consultation ---
Date of Consultation March 27, 2024 Assessment & Plan (1) Asthma with exacerbation: (2) Abnormal chest CT: (3) E-cigarette or vaping product use associated lung injury (EVALI): (4) Eosinophilia: Plan IMPRESSION: 23-year-old female with a significant history of vaping and marijuan a use who is admitted to the hospital in the setting of acute asthma exacerbation. RECOMMENDATIONS: 1. Asthma - Patient had 4 pulmonary function testing performed in the outpatient setting on 09/01/2023 which demonstrated moderate obstructive lung dysfunction with an FEV1 of 54%. During outpatient visit, we started the patient on high-dose Symbicort and albuterol inhaler. Conversation regarding maximization of her treatment of asthma prior to going down the path of biologic therapy or other escalation. Unfortunately, the patient had never followed up with our group and sounds as though she has not been using her maintenance inhalers appropriately. At this point, given her hospitalization of 2 times in 1 year. Would qualify her with her findings of eosinophilia for biologic therapy moving forward if this was something the patient would choose. Given this, and as we discussed laboratory assessment for possible allergic component, will obtain RAST panel as well as IgE level to help narrow down biologic therapy moving forward in the outpatient setting. The patient will need her high-dose Symbicort to be filled at the time of discharge. She should use this twice daily with a spacer. Additionally, she should have a rescue inhaler to be used as needed. We would be happy to see the patient back in follow-up in the next few weeks in the outpatient setting. Would emphasize the importance of need for close follow-up with pulmonary medicine given the severity of her symptoms and risks for deterioration. Thankfully, at this point, the patient is without bronchospasm. If she remains stable throughout the the rest of the day without return of symptoms, she could likely be discharged the next 24 to 48 hours pending the rest of her medical evaluation remains fine. 2. Possible EVALI - Infiltrative changes noted on her chest CT upon admission back in June. Resolution on CTA performed at the time of admission. This likely represented multifocal pneumonia process related to viral ideology. No further trending of imaging modalities necessary at this time. Would continue to encourage vaping cessation. 3. Vaping - Patient would benefit from complete cessation of vaping moving forward. Thank you for allowing us to participate in the care of this pleasant patient. Patient is improved and near her baseline at this time. Would be happy to follow with the patient in the next 4 to 6 weeks in the outpatient setting. Will sign off at this time. Please feel free to reach out for any further recommendations or concerns. History of Present Illness Reason for Consultation: asthma vs. EVALI exacerbation Requesting Physician: Dr. Preston Attending Physician: Sada Rasheed MD History of Present Illness Patient is a 23-year-old female with a significant past medical history of vaping and marijuana use who was admitted in June of last year with multifocal infiltrative changes and an asthma exacerbation. She was seen in the pulmonary clinic by myself on 09/07/2023 for follow-up. At that point, she was started on Symbicort and albuterol rescue inhaler. Order placed for follow-up chest CT as well as pulmonary function testing. Unfortunately, the patient had not followed up with any of the studies. Additionally, she reports that she has not been using her maintenance and/her rescue inhaler as recommended. She notes that ov er the last few weeks she has had an increasing cough and associated wheezing with difficulty and pain in her upper back. There is been nobody sick in her household. No fevers or chills. No production in her cough. She had continued to work throughout her symptoms and scheduled an acute appointment with her primary care provider's office yesterday and was sent by EMS to the emergency department. The patient received multiple DuoNeb treatments and intravenous corticosteroids. She reports that she did feel better after those initial treatments. She did not sleep well throughout the night and feels tired today, but overall reports that her breathing has improved. She offers no complaints of chest pain, palpitations, dizziness, lightheadedness, hemoptysis, or presyncope. Allergies Allergy/AdvReac Type Severity Reaction Status Date / Time No Known Allergies Allergy Verified 03/26/24 18:13 Home Medications Medication Instructions Recorded Confirmed Type albuterol sulfate 90 mcg/actuation 2 inha inhalation Q4H PRN 03/26/24 03/26/24 History aerosol inhaler shortness of breath or wheezing budesonide-formoterol HFA 160 2 puff inhalation BID 03/26/24 03/26/24 History mcg-4.5 mcg/actuation aerosol inhaler (Symbicort) buspirone 15 mg tablet 15 mg PO BID 03/26/24 03/26/24 History doxepin 75 mg capsule 75 mg PO HS PRN Sleep 03/26/24 03/26/24 History Patient History Medical History No pertinent family history Surgical History No pertinent past surgical history Family History Other No pertinent family history in first degree relatives Social History Smoking Status: Never smoker Tobacco Type: E-cigarettes / Vaping Age Started Using Tobacco: 16; Age Quit Using Tobacco: 23; Cigarettes Per Day: Quit July 2023; Second Hand Exposure: No; Do You Dip or Chew Tobacco: No; Tobacco Cessation Education Requested by Patient: No Hx Alcohol Use: No Hx Substance Use: Yes Last Used Substance: Days (ago) Last Used Substance Other:: has medical marijuana card Preferred Language: Citizen Of [place] Communication Ability: Effective 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 All else were negative. Physical Exam Physical Exam: VITAL SIGNS - Vital signs and nursing notes were reviewed. GENERAL - 23-year-old female appearing her stated age who is in no acute distres s. Communicates well with provider and answers questions appropriately. SKIN - Without rashes or lesions. NOSE - Midline and without cyanosis. MOUTH/OROPHARYNX - Without perioral cyanosis. NECK - Neck with FROM. LUNGS - Chest wall evaluation demonstrates normal chest wall A:P diameter. Auscultation reveals clear breath sounds bilaterally without wheezes, rales, or rhonchi appreciated. CARDIAC - RRR with S1/S2. No murmur, rubs, or gallops appreciated. EXTREMITIES - Nail clubbing not present. No peripheral cyanosis. No pretibial edema present. +3/5 radial palpated throughout. PSYCH - A&Ox3 and cooperates fully with examiner. Pt is very pleasant and interacts well with examiner. Results & Data Results & Data Vital Signs (Past 12 Hours) Vital Signs Temp Pulse Pulse Pulse Resp BP Pulse Ox 03/27/24 07:46 72 03/27/24 07:23 117 H 20 98 03/27/24 02:34 36.4 C L 71 16 110/54 L 95 03/26/24 22:06 18 97 03/26/24 21:18 86 03/26/24 21:09 03/26/24 21:09 36.6 C 87 18 111/66 93 03/26/24 20:40 85 O2 Del Method 03/27/24 07:46 03/27/24 07:23 Room Air 03/27/24 02:34 Room Air 03/26/24 22:06 Room Air 03/26/24 21:18 03/26/24 21:09 Room Air 03/26/24 21:09 Room Air 03/26/24 20:40 PG Care Time/CCT Total # of Minutes Spent Total Time Spent with Patient: Total time spent is greater than 50% in coordination of care (as documented) at patient's floor/unit and/or counseling patient: Coding Level of Care Code 05860 IN/OBS CONSULT LVL 3,45M Diagnoses Asthma with exacerbation J45.[address] R93.89 E-cigarette or vaping product use associated lung injury (EVALI) U07.0 Eosinophilia D72.10
[2024-03-27] MEDS ORDERED: methylPREDNISolone 125 MG/2 ML VIAL IV SCH (09:00)
[2024-03-27] MEDS: FLUTICASONE/VILANTEROL 200/25MCG 14 PUFFS/INHALER INH SCH (09:48)
--- NOTE | 2024-03-27 09:49 | Electrocardiogram Report ---
Test Reason : Blood Pressure : */* mmHG Vent. Rate : 85 BPM Atrial Rate : 85 BPM P-R Int : 126 ms QRS Dur : 76 ms QT Int : 364 ms P-R-T Axes : 77 0 57 degrees QTcB Int : 433 ms Sinus rhythm with occasional Premature ventricular complexes RSR' or QR pattern in V1 suggests right ventricular conduction delay Otherwise Normal ECG When compared with ECG of 10-Jul-2023 20:19, Questionable change in QRS axis Nonspecific T wave abnormality, improved in Inferior leads T wave inversion no longer evident in Anterior leads Confirmed by Silvino Escalante ([id number]) on 03/27/2024 9:49:39 AM Referred By: Confirmed By: Silvino Escalante
[2024-03-27 11:47] VITALS: TEMP 98.6; O2SAT 97
[2024-03-27] MEDS: methylPREDNISolone 60 MG in SYRINGE 0 ML IV SCH (11:47)
--- NOTE | 2024-03-27 14:20 | Discharge Summary ---
Discharge Summary Date of Service March 27, 2024 Principal Dx & Hospital Course #1 = Principal Diagnosis (1) E-cigarette or vaping product use associated lung injury (EVALI): (2) Asthma: (3) Shortness of breath: Plan Ms 23-year-old female with past med history significant for depression and anxiety, obstructive lung disease and hx of vaping who presents with shortness of breath for the past week. Patient admitted for acute asthma exacerbation. Patient treated with steroids and nebulizers with subjective improvement. Pulm evaluated patient and encouraged patient to hop picker symbicort to be used BID and to complete a course of po steroids. Patient verbalized understanding. #SOB #Acute asthma exacberation c/f EVALI Patient presenting from PCP's office with concern for respiratory distress Reportedly received IV steroids and DuoNebs en route to the hospital States she has been having shortness of breath for the last week, using her as needed albuterol inhaler [id number] Not hypoxic on admission, reported wheezing resolved at the time of exam. patient not in respiratory distress at the time of exam Chest x-ray with no acute abnormality Chest CTA with no PE and no acute abnormality Respiratory BioFire unremarkable continue po prednisone for 4 more days Symbicort BID, prior auth completed hypokalemia resolved Replete as needed Notes For Next Care Provider Medication Changes From Visit Symbicort BID (prior auth completed) 4 days PO 40mg prednisone Admission HPI Per Admitting Provider 23-year-old female with past med history significant for depression and anxiety, obstructive lung disease and hx of vaping who presents with shortness of breath for the past week. History obtained with patient's partner at bedside. States that for the past week she has been having trouble with breathing. Can happen at any time. States she presented to her PCPs office today for further evaluation and was sent over to the emergency room for further evaluation of respiratory distress and wheezing noted there. Chart review shows patient was admitted for the same earlier in the year and did have follow-up with pulmonology where she had pulmonary function test completed which noted obstructive lung pathology. It was determined at that time that she likely had asthma as well as EVALI given her history of vaping at that time. Patient states that she quit vaping 3 days ago. States the only inhaler she uses at home is her as needed albuterol. Denies any use of the Symbicort that was prescribed at her last pulmonary visit. Denies any recent URI symptoms. Denies any known sick contacts. States she was just concerned as she was having significant trouble breathing that was progressing and requiring use of her inhaler at home [id number] instead of as needed. Patient reportedly received steroids and a breathing treatment en route to the hospital. Received IV mag and a breathing treatment in the emergency room. Admission Exam Per Admitting Provider General: Alert, oriented. No acute distress Skin: No noted rashes or bruises Psych: Appropriate mood and affect HEENT: NC/AT Chest: Nontender to palpation. CV: RRR Resp: Breath sounds without wheezing at the time of exam bilaterally, no increased effort of breathing. patient with good air movement, not in respiratory distress Abdomen: Soft, nontender Extremities: No edema in lower extremities bilaterally. Discharge Exam Constitutional WD/WN, vitals as above Respiratory normal respiratory effort, lungs clear to auscultation Cardiovascular RRR, no murmur, no edema Musculoskeletal no cyanosis or clubbing, extremities motor strength 5/5 Updated Medication List Medication Instructions Recorded Confirmed Type albuterol sulfate 90 mcg/actuation 2 inha inhalation Q4H PRN 03/26/24 03/26/24 History aerosol inhaler shortness of breath or wheezing buspirone 15 mg tablet 15 mg PO BID 03/26/24 03/26/24 History doxepin 75 mg capsule 75 mg PO HS PRN Sleep 03/26/24 03/26/24 History budesonide-formoterol HFA 160 2 puff inhalation BID #10.2 grams 03/27/24 Rx mcg-4.5 mcg/actuation aerosol inhaler (Symbicort) prednisone 20 mg tablet 20 mg PO DAILY 4 days #4 tabs 03/27/24 Rx Hospital Stay Data Consultations 03/26/24 18:02 ED Decision to Admit Stat 03/26/24 21:05 Consult Pulmonology Routine Diagnostic Imagining Performed 03/26/24 16:09 CT angio chest PE protocol Stat Pending Results Patient Have Any Pending Studies at Discharge: Yes Discharge Instructions Given to Patient (Per Discharging Provider) You were admitted for acute asthma exacerbation. You were seen by pulmonary (lung doctors) who feel you need to follow up routinely to ensure your breathing and asthma remain controlled. A Symbicort in [facility] was sent to the [facility] pharmacy. You need to use this twice daily with a spacer The (red) rescue inhaler to be used as needed Tomorrow morning (03/28) please take 40mg prednisone each morning until course complete (4 days) Again, the importance for close follow-up with pulmonary medicine given the severity of her symptoms and risks for deterioration cannot be stressed enough. Please call Pulm for a follow up appointment post-hospitalization. Total Time Total Time Spent Total Time Spent (In Minutes): 45
[2024-03-27 15:08] VITALS: RESP 20
[2024-03-27 15:09] VITALS: BP 128/64
[2024-03-27 15:13] VITALS: PULSE 67
== END 2024-03-27 16:32 | disposition home or self-care (01) | DRG 206 ==
LOC: ED 15:53 → 2N 18:13 → SUATTDRO 18:13 → 2N 20:43